=== PATIENT | female | born 1945 | race Caucasian/White ===

== ENCOUNTER 2016-09-13 16:08 | Emergency (ER) | payer OTHER, MEDICARE ==
[~2016-09-13] VITALS: Ht 157.5 cm; Wt 81.2 kg
[~2016-09-13 16:08] MED LIST: ALBUTEROL0.09 MG/A1 INH; AMOXIL500 MG PO; AUGMENTIN 875 M1 TAB PO; AZITHROMYCIN250 MG PO; BLM PO; CIPRO 500MG (E500 MG PO; COZAAR50 M1 PO; CYANOCOBAL1000 MCG/2 IM; DILTIAZEM60 MG PO; FENOFIBRIC ACID45 M1 PO; MEDROL DOSEPAK1 PAC PO; MEDROL4 M2 PO; PREDNISONE 20MG20 MG PO; PREDNISONE10 MG PO; ROBITUSSIN COU237 ML PO; TYLENOL XSTR500 MG PO; VITAMIN D250000 UNIT PO; ZITHROMAX250 M2 PO; ZOFRAN4 M2 PO
[2016-09-13 16:14] VITALS: BP 124/81
--- NOTE | 2016-09-13 17:16 | ED GI/GU/ABDOMINAL COMPLAINT ---
History of Present Illness General Chief Complaint: General Adult Stated Complaint: "TARRY DIARRHEA PAIN IN LEFT SIDE" Source: patient Exam Limitations: no limitations Vital Signs & Intake/Output Vital Signs & Intake/Output Vital Signs Date Time Temp Pulse Resp B/P Pulse O2 O2 Flow FiO2 Ox Delivery Rate 09/13 1614 97.2 91 20 124/81 95 Room Air Allergies Coded Allergies: celecoxib (From CELEBREX) (Intermediate, UPSET STOMACH 09/13/16) naproxen (Intermediate, UPSET STOMACH 09/13/16) aspirin (GI UPSET 09/13/16) Reconcile Medications Azithromycin (Zithromax) 250 MG TABLET 1 DP PO AD PNA 2 the first day followed by 1 for days 2-5 Cyanocobalamin (Vitamin B-12) (Cyanocobalamin Injection) 1,000 MCG/1 ML VIAL 1 ML IM Q30D SUPPLEMENT (Reported) Ergocalciferol (Vitamin D2) (Vitamin D2) 50,000 UNIT CAPSULE 1 CAP PO Q2W SUPPLEMENT (Reported) FENOFIBRIC ACID (CHOLINE) (Fenofibric Acid) 45 MG ECC 1 TAB PO DAILY CHOLESTEROL (Reported) Losartan Potassium 50 MG TAB 1 TAB PO DAILY HEART (Reported) Methylprednisolone. (Medrol) 4 MG TAB.DS.PK 1 DP PO AD neck pain 6 on day 1 then reduce by one tablet daily until gone Ondansetron HCl (Zofran) 4 MG TABLET 1 TAB PO Q6-8P PRN NAUSEA Triage Note: TRIAGE: PT TO ER C/C DIARRHEA X 1 MONTH INTERMITTENT AND PAIN TO L FLANK AREA X COUPLE HOURS. WAS GIVEN DICYCLOMINE HCL 10 MG BY PMD FOR DIARRHEA BUT IT'S NOT HELPING. WAS REFERRED TO DR HIGGINS BUT CAN'T GET AN APPOINTMENT UNTIL OCTOBER. Triage Nurses Notes Reviewed? yes ? N Is pt currently ? No Onset: Gradual Duration: constant Timing: recent history Severity Numbers: 4 Radiation: no radiation HPI: Patient is a 71-year-old female with a past medical history of chronic pain who has been prescribed narcotic medications in the past in which patient states that recently she has been noting constipation issues and due to the symptoms she began laxative medications approximate 1 month ago and has had persistent loose watery stool bowel production since however she states that she was evaluated by primary care doctor and was given Bentyl for her symptoms with no improvement however patient is still taking the laxative. Patient's had 4 bowel movements loose watery in nature and the last 24 hours however patient does state that bowel movements have been black tarry stools in nature. Patient did yesterday begin regimen of [id number] Pepto-Bismol. Patient is able tolerate by mouth no change in symptoms. Denies any nausea vomiting abdominal pain back pain fever chills vaginal bleeding vaginal discharge flank pain hematuria dysuria or change in frequency of urination. Patient does state that she has a follow-up appointment with GI Dr. HIGGINS however this is not till next month. Patient also discontinue the use of Pepto-Bismol today Patient also has discontinued the use of morphine for her pain (MARIELA RIVERS) Past History Travel History Traveled to [place] past 21 day No Medical History Any Pertinent Medical History? 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 No (MARIELA RIVERS) Review of Systems Review of Systems Constitutional: Reports: no symptoms. EENTM: Reports: no symptoms. Respiratory: Reports: no symptoms. Cardiovascular: Reports: no symptoms. GI: Reports: see HPI, changes in stool. Denies: abdominal pain. Genitourinary: Reports: no symptoms. Musculoskeletal: Reports: no symptoms. Skin: Reports: no symptoms. Neurological/Psychological: Reports: no symptoms. Hematologic/Endocrine: Reports: no symptoms. Immunologic/Allergic: Reports: no symptoms. All Other Systems: Reviewed and Negative (MARIELA RIVERS) Physical Exam Physical Exam General Appearance: well developed/nourished, no apparent distress, alert Gastrointestinal: normal bowel sounds, soft, non-tender Rectal: RECTAL TONE INTACT nORMALINSPECTION bROWN STOOL NOTED fECAL OCCULT NEGATIVE Comments: Well-developed well-nourished person in no acute distress HEENT: Normal EENT exam, extraocular motion intact, no nystagmus. Pupils equally round and reactive to light and accommodation. Nose is atraumatic. External auditory canal and Tympanic membranes clear. Pharynx normal. No swelling or edema. Neck: Supple, no lymphadenopathy, normal range of motion without pain or tenderness Back: Nontender, no CVA tenderness. Cardiovascular: Regular rate and rhythms no murmurs rubs or gallops, normal JVP Respiratory: Chest nontender. No respiratory distress.breath sounds clear to auscultation bilaterally Abdomen: Soft, nontender nondistended, no appreciable organomegaly. Normal bowel sounds. No ascites Extremity: No edema, no calf tenderness to palpation, normal and equal pulses. Neuro: Alert oriented x3, motor sensory normal, Skin: No appreciable rash on exposed skin, skin is warm and dry. Psych: Mood and affect is normal, memory and judgment is normal. Core Measures ACS in differential dx? No Severe Sepsis Present: No Septic Shock Present: No (MARIELA RIVERS) Progress Differential Diagnosis: AAA, AMI, appendicitis, biliary colic, bowel obstruction , colon cancer, cholecystitis, diverticulitis, ectopic , endometritis, esophageal varices, gastritis, hepatitis, hernia, hemorrhoids, ischemic bowel, inflamm bowel dis, intrauterine , kidney stone, Kisha-Perfecto tear, ovarian cyst, ovarian torsion, pancreatitis, PID/cervicitis, peptic ulcer, PUD/ GERD, perforated viscous, SBO, threatened AB, UTI/pyelo Plan of Care: Patient currently has no complaints of abdominal pain and has nontender abdomen on exam. Patient had brown stool noted and fecal occult negative. Most likely patient's signs of black tarry stool were from Pepto-Bismol which has resolved. I also advised patient to discontinue the use of laxatives which is causing patient had significant bowel loose watery stool production. Patient on discharge was in no apparent distress and was strongly advised to follow-up with gastric urologist and she will comply. Discussed disposition and plan with Dr. Ocampo who agrees Initial ED EKG: none (MARIELA RIVERS) Departure Departure Disposition: HOME OR SELF CARE Condition: Stable Clinical Impression Primary Impression: Diarrhea Referrals: BLAKE SCHMITZ,FERNANDO Hernandez (PCP/Family) Additional Instructions: As discussed please discontinue the use of your laxative and only use THIS medication if you do not have a bowel movement in about 3-4 days Begin DRINKING PLENTY OF water FOR HYDRATION and fiber to improve your symptoms. If symptoms worsen or if you develop a new concerning symptom return to emergency room. Tomorrow please follow-up with your established quencher operator Dr. HIGGINS. Departure Forms: Customer Survey General Discharge Information (JUJU ROSENBERG,MARIELA) PA/[employer] Co-Sign Statement Statement: ED Attending supervision documentation- [X] I saw and evaluated the patient. I have also reviewed all the pertinent lab results and diagnostic results. I agree with the findings and the plan of care as documented in the PA's/[employer]'s documentation. [] I have reviewed the ED Record and agree with the PA's/[employer]'s documentation. [] Additions or exceptions (if any) to the PAs/[employer]'s note and plan are summarized below: [] (KRISTIE SCHMITZ,DEIDRE Barnes)
== END 2016-09-13 18:19 ==
LOC: ERH 16:08
DX: R19.7 Diarrhea, unspecified (principal)

== ENCOUNTER 2016-10-23 07:40 | Emergency (ER) | payer OTHER, MEDICARE ==
[~2016-10-23] VITALS: Ht 157.5 cm; Wt 81.6 kg
[2016-10-23] MEDS ORDERED: PREDNISONE10 M2 PO (08:46)
[2016-10-23] MEDS ORDERED: PANTOPRAZOLE SO40 M1 PO (08:47)
--- NOTE | 2016-10-23 08:51 | ED GENERAL ADULT ---
History of Present Illness General Chief Complaint: General Adult Stated Complaint: LAZO/LEFT SIDE NECK PAIN TRAVELS TO LEFT ARM Source: patient Exam Limitations: no limitations Allergies Coded Allergies: celecoxib (From CELEBREX) (Intermediate, UPSET STOMACH 09/13/16) naproxen (Intermediate, UPSET STOMACH 09/13/16) aspirin (GI UPSET 09/13/16) Triage Note: PT TO ED WITH C/O HEADACHE PAIN, THEN LIPS NUMB, THEN HANDS NUMB, HX MIGRAINE, AND C-SPINE PROBLEMS "PINCHED NERVE IN MY NECK", PT HAS NEUROLOGIST DR JI IN [place], HAS APPT WITH DR NOBLE FOR "SHOT IN MY LEGS". Triage Nurses Notes Reviewed? yes HPI: 71 year old woman with an extensive medical history significant for multiple pain complaints, degenerative disk disease, cervical radiculopathy, herniated disc and arthritis seen for evaluation of acute onset left-sided 10/10 neck pain with radiation above her eye. Around 2 AM she was awoken with this acute onset pain, which has happened in the past, for which she went downstairs and applied an ice pack to the area which offered her relief. She describes the pain has a "charley horse" associated lip and bilateral hand numbness. She has undergone extensive medical evaluation by multiple different specialties including orthopedics, pain management, rheumatology with an upcoming appointment with neurology for these complaints in the past. Additional comments on associated chest discomfort that she attributes to her herniated disc. Otherwise she denies any blurred/double vision, lightheadedness/dizziness, fever , chills, palpitations, shortness of breath, nausea, vomiting, diarrhea. (MILENA SCHMITZ,KIMMIE) Vital Signs & Intake/Output Vital Signs & Intake/Output Vital Signs Date Time Temp Pulse Resp B/P Pulse O2 O2 Flow FiO2 Ox Delivery Rate 10/23 0903 98.0 70 20 140/80 98 Room Air 10/23 0748 97.8 71 20 146/86 98 Room Air Room Air Reconcile Medications Cyanocobalamin (Vitamin B-12) (Cyanocobalamin Injection) 1,000 MCG/1 ML VIAL 1 ML IM Q30D SUPPLEMENT (Reported) Ergocalciferol (Vitamin D2) (Vitamin D2) 50,000 UNIT CAPSULE 1 CAP PO Q2W SUPPLEMENT (Reported) Fenofibric Acid (Choline) (Fenofibric Acid) 45 MG CAPSULE.DR 1 TAB PO DAILY CHOLESTEROL (Reported) Losartan Potassium (Cozaar) 50 MG TABLET 1 TAB PO DAILY HEART (Reported) Pantoprazole Sodium 40 MG TABLET. 1 TAB PO DAILY GI (Reported) Prednisone 10 MG TABLET 1 TAB PO DAILY STEROID (Reported) (ANA SCHMITZ,GOLD Hanks) Past History Travel History Traveled to [place] past 21 day No Medical History Any Pertinent Medical History? 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 No (KIMMIE ABBOTT MD) Review of Systems Review of Systems Constitutional: Reports: see HPI. (KIMMIE ABBOTT MD) Physical Exam Physical Exam General Appearance: well developed/nourished, no apparent distress, alert, awake Comments: General - well developed, well nourished obese woman in no acute distress HEENT - NCAT, PERRLA, EOMI, anicteric sclera Neck - Supple, mild tenderness to palpation, no JVD CVS - S1, S2 w/o m/g/r Resp - CTA bilaterally GI - Soft, nontender, nondistended, bowel sounds intact Neuro - Awake and Alert, CN II - XII intact, no slurred speech, no gait disturbance, Strength 5/5 x4, sensation intact Ext - normal pulses, no cyanosis/clubbing/edema Core Measures ACS in differential dx? No CVA/TIA Diagnosis: No Severe Sepsis Present: No Septic Shock Present: No (KIMMIE ABBOTT MD) Progress Differential Diagnoses I considered the following diagnoses in my evaluation of the patient: cervical radiculopathy, musculoskeletal strain, TIA, CVA Plan of Care: Current Medications Sig/Sami Start time Last Medication Dose Stop Time Status Admin Ketorolac 30 MG ONCE ONE 10/23 0845 UNVr Tromethamine 10/23 0846 (Toradol) Initial ED EKG: none Comments: Given patients extensive medical history of musculoskeletal pain, degenerative disc disease, and cervical radiculopathy which has been extensively evaluated by multiple specialists it is likely that patients pain complaints are an exacerbation of her underlying disease. She has a benign physical examination including a normal neurologic evaluation. She was given an intramuscular injection of Toradol and instructed to follow up with her various specialists after discharge. (KIMMIE ABBOTT MD) Departure Departure Disposition: HOME OR SELF CARE Condition: Stable Clinical Impression Primary Impression: Cervical radicular pain Secondary Impressions: Musculoskeletal strain Referrals: BLAKE SCHMITZ,FERNANDO Hernandez (PCP/Family) Additional Instructions: Follow up with your various specialists for further evaluation of your neck pain. Call 911 or return to the ED should your symptoms worsen, or if you developed signs of slurred speech, weakness, or worsening neurologic deficits. Departure Forms: Customer Survey General Discharge Information (KIMMIE ABBOTT MD) Resident Co-Sign Statement Statement: ED Attending supervision documentation- [X] I saw and evaluated the patient. I have also reviewed all the pertinent lab results and diagnostic results. I agree with the findings and the plan of care as documented in the Resident's documentation. [X] I have reviewed the ED Record and agree with the Resident's documentation. [] Additions or exceptions (if any) to the Resident's note and plan are summarized below: [Percent seen and examined this patient. I read the above-noted review with what has been written. Patient has a known history of cervical radiculopathy. She has seen orthopedics and has appointment with a neurologist. Patient states that she feels that she has perioral numbness as well as numbness in both hands. Patient denies any weakness. On exam she has subjective sensory loss but normal motor function and normal tone. There is sharp and dull discrimination to both hands as well as periorarly. Patient is stable for discharge with follow-up.] (ANA SCHMITZ,GOLD Hanks) Critical Care Note Critical Care Note Critical Care Time: non-applicable (KIMMIE ABBOTT MD)
[2016-10-23 09:03] VITALS: BP 140/80
== END 2016-10-23 09:03 ==
LOC: ERH 07:40
DX: S16.1XXA Strain of muscle, fascia and tendon at neck level, initial encounter (principal); M54.12 Radiculopathy, cervical region
CPT/HCPCS: 96372; J1885

== ENCOUNTER 2017-02-08 00:25 | Inpatient (IN) | payer OTHER, MEDICARE ==
[~2017-02-08] VITALS: Ht 157.5 cm; Wt 83.0 kg
[~2017-02-08 00:25] MED LIST changes: +PANTOPRAZOLE SO40 M1 PO; +PREDNISONE10 M2 PO
--- NOTE | 2017-02-08 00:28 | ED CARDIAC/CP/PALPITATIONS ---
History of Present Illness General Chief Complaint: Chest Pain Stated Complaint: PER PT CP, VOMITING" Source: patient Exam Limitations: no limitations Vital Signs & Intake/Output Vital Signs & Intake/Output Vital Signs Date Time Temp Pulse Resp B/P B/P Pulse O2 O2 Flow FiO2 Mean Ox Delivery Rate 02/08 0133 97.0 126 18 153/89 95 Nasal 2.0L Cannula 02/08 0034 95.2 130 18 148/66 95 Room Air Allergies Coded Allergies: celecoxib (From CELEBREX) (Intermediate, UPSET STOMACH 02/08/17) naproxen (Intermediate, UPSET STOMACH 02/08/17) aspirin (GI UPSET 02/08/17) Reconcile Medications Cyanocobalamin (Vitamin B-12) (Cyanocobalamin Injection) 1,000 MCG/1 ML VIAL 1 ML IM Q30D SUPPLEMENT (Reported) Ergocalciferol (Vitamin D2) (Vitamin D2) 50,000 UNIT CAPSULE 1 CAP PO Q2W SUPPLEMENT (Reported) Fenofibric Acid (Choline) (Fenofibric Acid) 45 MG CAPSULE.DR 1 TAB PO DAILY CHOLESTEROL (Reported) Losartan Potassium (Cozaar) 50 MG TABLET 1 TAB PO DAILY HEART (Reported) Pantoprazole Sodium 40 MG TABLET.DR 1 TAB PO DAILY GI (Reported) Prednisone 10 MG TABLET 1 TAB PO DAILY STEROID (Reported) Triage Nurses Notes Reviewed? yes Onset: Gradual Duration: hour(s): Timing: recent history Quality/Severity: moderate Location: central Radiation: no radiation Activities at Onset: none Prior Chest Pain/Card Workup: prior eval reportedly negative more than 2 years ago. Nitro Today/Relief: 0.4 mg x 1, provided by ED, mild relief Aspirin Today: 325 mg x 1, provided by ED Associated Symptoms: back pain. HPI: 71 yo woman h/o fatty liver presents with chest pain that began at 11pm. At home, pain was 9/10, in ED, presently 7/10. She notes, "I also have had back pain for many months... I had disc problems." She notes no shortness of breath, dyspnea, radiation, sycnopal type symptoms. Past History Travel History Traveled to [place] past 21 day No Medical History Any Pertinent Medical History? 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 No Review of Systems Review of Systems Constitutional: Reports: no symptoms. EENTM: Reports: no symptoms. Respiratory: Reports: no symptoms. Cardiovascular: Reports: no symptoms. GI: Reports: no symptoms. Genitourinary: Reports: no symptoms. Musculoskeletal: Reports: no symptoms. Skin: Reports: no symptoms. Neurological/Psychological: Reports: no symptoms. Hematologic/Endocrine: Reports: no symptoms. Immunologic/Allergic: Reports: no symptoms. All Other Systems: Reviewed and Negative Physical Exam Physical Exam General Appearance: well developed/nourished, mild distress Head: atraumatic, normal appearance Eyes: Bilateral: normal appearance. Ears, Nose, Throat: normal pharynx, normal ENT inspection Neck: normal inspection, supple, full range of motion Respiratory: normal breath sounds, chest non-tender, no respiratory distress, quiet respiration, lungs clear Cardiovascular: regular rate/rhythm Gastrointestinal: normal bowel sounds, soft, non-tender, no organomegaly Back: normal inspection, normal range of motion Extremities: normal inspection, normal capillary refill, normal range of motion, no edema Neurologic/Psych: no motor/sensory deficits, awake, alert, oriented x 3 Skin: intact, normal color, warm/dry Core Measures ACS in differential dx? Yes ASA ordered for poss ACS? Yes-ordered Severe Sepsis Present: No Septic Shock Present: No Progress Differential Diagnosis: AMI, CHF/pulm edema, costochondritis, unstable angina Plan of Care: Orders Procedure Date/time Status Nothing by Mouth 02/08 B Active Saline Lock 02/[address] in observation 02/08 227 Active Misc Message 02/08 227 Active ED Holding Orders 02/08 227 Active Vital Signs 02/08 227 Active Code Status 02/08 227 Active TROPONIN LEVEL 02/09 28 Complete PARTIAL THROMBOPLASTIN TIME 02/08 0028 Complete PROTHROMBIN TIME 02/08 0028 Complete LIPASE 02/08 0028 Complete HEPATIC FUNCTION PANEL 02/08 0028 Complete D-DIMER 02/08 0028 Complete CBC WITHOUT DIFFERENTIAL 02/088 Complete BASIC METABOLIC PANEL 02/09 28 Complete AMYLASE 02/09 28 Complete EKG 02/08 27 Active Current Medications Sig/Sami Start time Last Medication Dose Stop Time Status Admin Heparin Sodium 4,000 UNIT ONCE ONE 02/08 230 UNVr (Porcine) 02/08 231 (Heparin Bolus) Heparin Sodium 25,000 UNIT Q24H 02/08 230 UNVr (Porcine) (Heparin) Sodium Chloride 500 ML Laboratory Tests 02/08/17 0040: Anion Gap 11, Estimated GFR > 60, BUN/Creatinine Ratio 21.3, Glucose 95, Calcium 10.2, Total Bilirubin 0.6, Direct Bilirubin 0.1, AST 21, ALT 38, Alkaline Phosphatase 81, Troponin I < 0.01, Total Protein 6.8, Albumin 4.1, Amylase 41, Lipase 59, PT 10.4, INR 0.99, APTT 30, D-Dimer High Sensitivty < 200, CBC w Diff NO MAN DIFF REQ, RBC 4.58, MCV 91.5, MCH 30.5, RDW 13.6, MPV 9.5, Gran % 49.1, Lymphocytes % 33.2, Monocytes % 11.5 H, Eosinophils % 5.9 H, Basophils % 0.3, Absolute Granulocytes 5.0, Absolute Lymphocytes 3.3, Absolute Monocytes 1.2 H, Absolute Eosinophils 0.6, Absolute Basophils 0, PUBS MCHC 33.3 Diagnostic Imaging: Viewed by Me: Radiology Read. Discussed w/RAD: Radiology Read. CXR Impression: no acute abnormality, no infiltrates, normal size heart, normal mediastinum Initial ED EKG: sinus tach Departure Departure Disposition: STILL A PATIENT Condition: Stable Clinical Impression Primary Impression: Chest pain Referrals: BLAKE SCHMITZ,FERNANDO Hernandez (PCP/Family) Departure Forms: Customer Survey General Discharge Information Comments 02/08/17, 1:56AM... discussed with dr. baum who concurs with plan to bring patient with for obs. He suggests heparin gtt for unstable angina. Observation Note Spoke With: JULIET SCHMITZ,LEE ANN Physician Advisor Notified: DEIDRE LADD DO Place Patient In: Non-ED OBS Care Area Rationale for Observation: My rational for observation is as follows . pt with multiple risk factors (age, lipids, htn), with uncertain etiology of her chest pain.... merits rule out, monitoring for dysrhythmia, cards eval in am... discussed with dr. baum. Critical Care Note Critical Care Note Critical Care Time: 30-74 min Comments: nitro given ... possible partial response. pt also with reproducible component of chest pain and back pain. dimer, trop negative.
--- NOTE | 2017-02-08 00:39 | NUR ---
O2:95%RA, PLACED ON 2LNC ON ARRIVAL. IV EST #20 RIGHT HAND BY KAREEM Izquierdo RN.
--- NOTE | 2017-02-08 00:39 | NUR ---
TRIAGE: PATIENT TO ER FROM HOME REPORTING SUDDEN ONSET CP X 30 MINUTES, "TOOK HR AND IT WAS 135 AT HOME." HR 130 ON MONITOR, PATIENT REPORTS "MAYBE HAD RI IN PAST." HX HTN AND HIGH CHOLESTEROL. PATIENT VOMITTING ON ARRIVAL TO ER, REPORTING +NAUSEA, HEADACVHE, LIGHTHEADEDNESS W/ INTERMITTENT SOB.
--- NOTE | 2017-02-08 00:48 | NUR ---
PT REPORTS DROVE ON A LONG TRIP LAST WEEKEND AND HAS HAD ACHES AND PAIN TO BACK AND RT SHOULDER SINCE THEN, IV ESTABLISHED. LABS DRAWN SEPARATELY. AT BEDSIDE.
[2017-02-08 00:58] LABS: ABSOLUTE BASOPHIL COUNT 0 /CUMM (0.0-0.2); ABSOLUTE EOSINOPHIL COUNT 0.6 /CUMM (0.0-0.7); ABSOLUTE LYMPH COUNT 3.3 /CUMM (1.2-3.4); ABSOLUTE MONOCYTE COUNT 1.2 /CUMM (0.10-0.60); BASOPHIL % 0.3 % (0.0-2.0); EOSINOPHIL % 5.9 % (0-5); GRANULOCYTE % 49.1 % (42.2-75.2); HEMATOCRIT 41.9 % (37-47); MEAN CORPUSCULAR HGB 30.5 PG (27.0-31.0); MEAN CORPUSCULAR HGB CONC 33.3 G/DL (33.0-37.0); MEAN CORPUSCULAR VOLUME 91.5 FL (81.0-99.0); MEAN PLATELET VOLUME 9.5 FL (7.4-10.4); PLATELET COUNT 227 /CUMM (130-400); RBC DISTRIBUTION WIDTH 13.6 % (11.5-14.5); RED BLOOD CELL CT 4.58 /CUMM (4.20-5.40); WHITE BLOOD CELL COUNT 10.1 /CUMM (4.8-10.8)
[2017-02-08 01:04] LABS: PT 10.4 SEC (9.4-12.5); PTT 30 SEC (25-37)
--- NOTE | 2017-02-08 01:09 | NUR ---
REPORTS PAIN 7/10 BEFORE NITRO, UPON ARRIVAL TO ROOM PLACED ON O2 FOR COMFORT.
--- NOTE | 2017-02-08 01:28 | RADIOLOGY REPORT ---
EXAMINATION: XR PORTABLE CHEST CLINICAL INFORMATION: Chest pain COMPARISON: 06/25/2016 TECHNIQUE: Portable frontal view of the chest was obtained. FINDINGS: The lungs are clear with no focal consolidation. No evidence of pneumothorax, pulmonary edema, or pleural effusions. The cardiomediastinal silhouette is unremarkable. No acute osseous findings. IMPRESSION: No acute cardiopulmonary findings.
--- NOTE | 2017-02-08 01:46 | NUR ---
NO RELIEF FROM NTG PT REPORTS ONLY ICE PACKS USUALLY HELP. AMBULATORY TO BR GAIT STEADY NO WORSENING PAIN.
--- NOTE | 2017-02-08 02:00 | NUR ---
RECTAL HEME NEG
--- NOTE | 2017-02-08 02:15 | NUR ---
AWAITING HEPARIN ORDER FROM .
--- NOTE | 2017-02-08 02:25 | NUR ---
HR DOWN TO 110-115.
--- NOTE | 2017-02-08 02:42 | History & Physical ---
KATYA ENGLE 02/08/17 0242: General Information and HPI MD Statement: I have seen and personally examined REJI ALEJANDROKATY and documented this H&P. The patient is a 71 year old F who presented with a patient stated chief complaint of chest pain Source of Information: patient Exam Limitations: no limitations History of Present Illness: 71 year old woman with pmh significant for HTN, HLD, GERD, history of tachycardia came to ED for evaluation of Chest pain. Around 11pm yesterday evening she was woken up from sleep by a sharp substernal non radiating chest pain with a severity of 10/10 and was associated with palpitations and shortness of breath. She went downstairs and checked her BP and HR and found it to be respectively 175/108 and 138. When she came to the ED she experienced some nausea and vomitting. Her Pain had also reduced to 7/10. She was give nitro in the ED however did not feel any improvement afterwards. On interview she was pain free. She drove about 10 hours last weekend. Last cardiac workup was two years ago which was normal. Allergies/Medications Allergies: Coded Allergies: celecoxib (From CELEBREX) (Intermediate, UPSET STOMACH 02/08/17) naproxen (Intermediate, UPSET STOMACH 02/08/17) aspirin (GI UPSET 02/08/17) Compliance With Home Meds: GOOD Past History Travel History Traveled to [place] past 21 day No Medical History Neurological: NONE EENT: NONE Cardiovascular: hypertension, hyperlipidemia, "MAYBE [place]" Respiratory: NONE Gastrointestinal: NONE Hepatic: NONE Renal: NONE Musculoskeletal: sciatica, SPINAL FLUID/ PAIN HERNIATED DISC NECK PINCHED NERVES IN NECK RUPTERED DISK Psychiatric: NONE Endocrine: vitamin D deficiency, VITAMIN B 12 DEFICIENCY Blood Disorders: NONE Cancer(s): NONE SERVICE GIRL/Reproductive: NONE Surgical History Surgical History: NECK SURG "CODED JUST AFTER SURG" Past Family/Social History Family History Relations & Conditions if any MOTHER FH: COPD (chronic obstructive pulmonary disease) FH: myocardial infarction Psychosocial History Where do you live? Home Who Do You Live With? spouse Smoking Status: Never Smoked ETOH Use: denies use Functional Ability ADLs Independent: dressing, eating, toileting, bathing. Ambulation: independent IADLs Independent: shopping, housework, finances, food prep, telephone, transportation , medication admin. Review of Systems Review of Systems Constitutional: Denies: chills, diaphoresis, fever, malaise, weakness, unexplained weight loss. Cardiovascular: Reports: chest pain, palpitations. Denies: edema, orthopena, peripheral edema, syncope. Respiratory: Reports: short of breath. Denies: cough, hemoptysis, orthopnea, sputum production, stridor, wheezing. GI: Denies: abdominal pain, bloating, constipation, diarrhea, distention, bowel incontinence, melena, nausea, bloody stool, changes in stool, vomiting, steatorrhea. Genitourinary: Denies: discharge, dysuria, frequency, hematuria, hesitation, nocturia, pain, urgency. Exam & Diagnostic Data Last 24 Hrs of Vital Signs/I&O Vital Signs Date Time Temp Pulse Resp B/P B/P Pulse O2 O2 Flow FiO2 Mean Ox Delivery Rate 02/08 0559 97.1 73 119/93 02/08 0350 97.4 88 18 130/56 02/08 0350 97.4 88 18 130/56 96 Nasal 2.0L Cannula 02/08 0133 97.0 126 18 153/89 95 Nasal 2.0L Cannula 02/08 0034 95.2 130 18 148/66 95 Room Air Intake & Output 02/08 0800 02/08 0000 02/07 1600 Intake Total Output Total Balance Patient 183 lb Weight Weight Reported by Patient Measurement Method Physical Exam General Appearance Alert, Oriented X3, Cooperative, No Acute Distress Skin No Significant Lesion HEENT Atraumatic, PERRLA, EOMI, Mucous Membr. moist/pink Neck Supple Lymphatic Cervical nl Cardiovascular Regular Rate, Normal S1, Normal S2 Lungs Clear to Auscultation, Normal Air Movement Abdomen Normal Bowel Sounds, Soft, No Tenderness Neurological Normal Speech, Strength at 5/5 X4 Ext, Normal Tone, Cranial Nerves 3-12 NL Extremities No Edema, Normal Pulses Diagnostic Data EKG Results sinus tachy, [address] wave depression in leads v2v3, Qwaves in 2/3 CXR Results IMPRESSION: No acute cardiopulmonary findings. Assessment/Plan Assessment: 71 year old woman with pmh significant for HTN, HLD, GERD, history of tachycardia came to ED for evaluation of Chest pain. As Ranked By This Provider Problem List: 1. Atypical chest pain Assessment/Plan admit to tele trend trop and EKG IV heparin started in ED f/up lipid panel, TSH/t2 f/up echo cardiology aware DVT doppler to r/o dvt ( long distance drive, however Low risk per Well's score 2. DVT prophylaxis Assessment/Plan IV heparin 3. Full code status Core Measures/Miscellaneous Sepsis (View Protocol) Severe Sepsis Present: No Septic Shock Septic Shock Present: No SANDY OVERTON 02/08/17 0532: General Information and HPI Allergies/Medications Home Med list Aspirin (Aspirin*) 81 MG TAB.CHEW 1 TAB PO DAILY HEART HEALTH Atorvastatin Calcium 40 MG TABLET 1 TAB PO 1700 HYPERLIPIDEMIA Cyanocobalamin (Vitamin B-12) (Cyanocobalamin Injection) 1,000 MCG/1 ML VIAL 1 ML IM Q30D SUPPLEMENT (Reported) Ergocalciferol (Vitamin D2) (Vitamin D2) 50,000 UNIT CAPSULE 1 CAP PO Q2W SUPPLEMENT (Reported) Fenofibric Acid (Choline) (Fenofibric Acid) 45 MG CAPSULE.DR 1 TAB PO DAILY CHOLESTEROL (Reported) Losartan Potassium (Cozaar) 50 MG TABLET 1 TAB PO DAILY HEART (Reported) Metoprolol Tartrate 25 MG TABLET 1 TAB PO BID HEART DISEASE Pantoprazole Sodium 40 MG TABLET.DR 1 TAB PO DAILY GI (Reported) Prednisone 10 MG TABLET 1 TAB PO DAILY PRN ARTHRITIS (Reported) Core Measures/Miscellaneous Acute Coronary Syndrome ACS Diagnosis: No Cerebrovascular Accident CVA/TIA Diagnosis: No Congestive Heart Failure CHF Diagnosis: No VTE (View Protocol) VTE Risk Factors: Acute medical illness, Age > 40, Immobility, paresis [facility] prophylaxis d/t: No contraindications No VTE Pharm Prophylaxis d/t: No contraindications VTE Diagnosis: No VTE Type: NONE VTE Confirmed by (Test): NONE Miscellaneous Documentation Attending Case Discussed With: LEE ANN CHUNG MD Primary Care Physician: FERNANDO LOZANO MD Patient sees these Specialists Dr. Fernandez Level of Patient Care: Telemetry Resident Review Statement Resident Statement: examined this patient, discussed with human resources intern, amended to note Other Findings: 71 year old woman with HTN, long standing history of palpitations, seen in the ED for an episode of non exertional chest pain that started 11 pm after the patient had salad with vinegar for her meal, lasting for more than an hour, not improved with nitro use, currently chest pain free, deemed unstable angina in the ED and now on IV Heparin. Troponin : <0.01 D-dimer : <200, Well's :Intermedite risk HERMINIO score : 1. EKG: High suspicion for atrial tachycardia. Previously present RSR' variant on EKG now not present. Old inferior infarct. Plan: 1. ACS: Rule out with serial troponins and EKG. IV Heparin per Cardio. ASA, B- deisy, statin, nitroglycerin, morphine and oxygen. Echo. Continue PPI for acid suppression. 2. Atrial tachycardia verus inappropriate sinus tachycardia: Denies increased caffeine intake, no cocaine use. Check TSH/T4. Normal potassium noted, check magnesium, replete as necessary Mg > 2. Fluid hydration. Low likelihood for DVT, but recent long drive to [place], rule out DVT with doppler. Of note, first time alcohol use this evening. Non-smoker. Improved HR after one dose of B-deisy, well tolerated. 3. Hypertension: Continue home dose of Losartan. Full code IV heparin - DVT prophylaxis. NPO until cardio evaluation in the event of any intervention, pending results of EKGs and cardiac markers. LEE ANN CHUNG 02/08/17 0619: Attending MD Review Statement Attending Statement Attending MD Statement: examined this patient, discuss w/resident/PA/LEAD GAME DESIGNER, agreed w/resident/PA/LEAD GAME DESIGNER, reviewed EMR data (avail), reviewed images, amended to note Attending Assessment/Plan: CC: Chest pain PMH: HTN, HLD, OA, chronic back pain Patient came to ER with sudden onset sharp chest pain all over her chest 10/10 in intensity, nonradiating, non-shifting, started at 11 PM. Associated with some palpitations and mild difficulty in breathing. Patient has occasional dry cough, mild nausea vomiting and dizziness. When the symptoms started at home she checked her pulse and blood pressure at home which were elevated, when the chest pain was persistent she came to ER. Patient had 3 similar episodes in the past last summer, was evaluated by coding and reimbursement specialist outpatient. Patient has limited physical activity secondary to chronic back pain and history of angina or heart failure cannot be elicited. Patient also traveled [address] recently without taking a break. She had mild lower extremity swelling bilaterally last week but currently resolved. Denies fever or chills syncope or presyncopal episodes Vitals: Afebrile, pulse and 138 and regular, RR 18, blood pressure 148/66, saturating well on 2 L nasal cannula. On exam: A O 3, cooperative, no acute distress, neck supple, JVD normal, no lymphadenopathy, mucosa moist, no focal neurological deficit, no dependent edema , no obvious skin rashes or inflammation CVS: S1-S2, RRR. RS: Clear to auscultate bilaterally. Abdomen: Soft, NT, ND, bowel sounds present. Labs: CBC, BMP, LFT, troponin, d-dimer unremarkable chest x-ray: No acute cardiopulmonary process A and P 71-year-old female with a past medical history significant for hypertension and dyslipidemia presented with acute onset diffuse chest pain 10/10 intensity associated with palpitations. Symptomatically much better after coming to ER and with multiple treatments. Similar episodes in the past but does not specify whether exertional or nonexertional. Because of limited physical activity with chronic back pain exertional dyspnea or angina cannot be evaluated. Follows up with outpatient cardiology. She did not tolerate beta deisy in the past. Acute coronary syndrome should be ruled out, at the same time given her long travel, recent leg swelling and tachycardia DVT/ VTE should be ruled out. Her d-dimer is negative, bilateral lower extremity Dopplers will be next best choice. + Chest pain : ? Unstable angina + Rule out pulmonary embolism + History of hypertension, dyslipidemia + History of back pain with lumbar and cervical radiculopathy - Placed in observation on telemetry - Continuous telemetry monitoring - Trend troponin and EKG - Continue heparin drip - Continue aspirin, atorvastatin - Check lipid profile - Consult cardiology - 2-D echo in a.m., DVT Doppler bilateral lower extremity - According to patient, she tried beta blockers 2 times in the past and cannot tolerate it - Adequate pain control - DVT prophylaxis with Lovenox
--- NOTE | 2017-02-08 02:58 | NUR ---
HOUSESTAFF REVIEWING CHART.
--- NOTE | 2017-02-08 04:13 | NUR ---
AWAITS BED ASSIGNMENT.
--- NOTE | 2017-02-08 04:20 | NUR ---
PER SUPER HAVE TO MOVE BEDS TO MAKE ROOM FOR PT.
[2017-02-08 05:58] LABS: ABSOLUTE BASOPHIL COUNT 0.1 /CUMM (0.0-0.2); ABSOLUTE EOSINOPHIL COUNT 0.6 /CUMM (0.0-0.7); ABSOLUTE GRANULOCYTE CT 4.7 /CUMM (1.4-6.5); ABSOLUTE LYMPH COUNT 2.8 /CUMM (1.2-3.4); ABSOLUTE MONOCYTE COUNT 0.8 /CUMM (0.10-0.60); BASOPHIL % 0.6 % (0.0-2.0); EOSINOPHIL % 6.2 % (0-5); MEAN CORPUSCULAR HGB 30.6 PG (27.0-31.0); MEAN CORPUSCULAR HGB CONC 33.2 G/DL (33.0-37.0); MEAN CORPUSCULAR VOLUME 92.1 FL (81.0-99.0); MEAN PLATELET VOLUME 10.1 FL (7.4-10.4); PLATELET COUNT 199 /CUMM (130-400); RBC DISTRIBUTION WIDTH 13.3 % (11.5-14.5); RED BLOOD CELL CT 4.23 /CUMM (4.20-5.40); WHITE BLOOD CELL COUNT 8.9 /CUMM (4.8-10.8)
--- NOTE | 2017-02-08 05:58 | NUR ---
REPEAT EKG, LABS DRAWN AND SENT ASLEEP DENIES PAIN CONT TO AWAIT BED.
--- NOTE | 2017-02-08 07:32 | NUR ---
ASSUMED CARE OF PT AT THIS TIME WHO WAS SLEEPING ON THIS RN ENTRANCE TO ROOM WAKES EASY TO VOICE AND OFFERS NO COMPLAINTS. DENIES PAIN. STATES SHE IS COMFORTABLE. NORMAL SINUS ON MONITOR, RATE 70'S. MED WITH PRILOSEC PER OCT.
[2017-02-08 09:22] LABS: PTT 71 SEC (25-37)
--- NOTE | 2017-02-08 09:36 | NUR ---
TAKEN TO US
--- NOTE | 2017-02-08 09:51 | NUR ---
PTT RESULTED AT 71. PER PROTOCOL, NO CHANGE TO DRIP. NEXT PTT TO BE CHECKED IN 12 HOURS (2045, 845 PM).
--- NOTE | 2017-02-08 10:19 | ULTRASOUND REPORT ---
EXAMINATION: US DUPLEX LOWER EXTREMITY VEINS, BILATERAL CLINICAL INFORMATION: Clinical concern regarding deep venous thrombosis. Bilateral lower extremity swelling after long drive. COMPARISON: Report of a right lower extremity duplex 06/05/15 TECHNIQUE: Real-time grayscale compression evaluation of the deep venous system. The compression exam is supplemented by color mapping and spectral analysis. Calf augmentation was used. Bilateral lower extremities FINDINGS: The deep venous system was visualized and compressible. The Doppler exam is normal. IMPRESSION: No deep venous thrombosis demonstrated.
--- NOTE | 2017-02-08 10:52 | NUR ---
MEDICATED WITH 1000 MEDS - ASA LISTED ALLERGY, PT STATES SHE TAKES IT AT HOME OCCASIONALLY AND SOMETIMES GETS LEG CRAMPS. WOULD LIKE TO TAKE IT TODAY IN ED, MEDICATED WITH SAME. REMAINS NORMAL SINUS ON MONITOR, RATE 70'S DENIES PAIN. OFFERS NO COMPLAINTS.
--- NOTE | 2017-02-08 11:15 | NUR ---
REPORT GIVEN TO UCRTIS PEDRO
--- NOTE | 2017-02-08 11:54 | NUR ---
12P TROP DRAWN AND SENT TO LAB
--- NOTE | 2017-02-08 11:55 | NUR ---
12P EKG DONE AND PLACED IN CHART; #[phone] PAGED
--- NOTE | 2017-02-08 12:01 | NUR ---
REPORT RECEIVED ON PT AND RN CARE ASSUMED PT DENIES CHEST PAIN OR SOB. HEPARIN DRIP INFUSING UNREMARKABLY. ALL V.S.S.
--- NOTE | 2017-02-08 14:05 | NUR ---
CLINICAL STATUS UNCHANGED. ALL V.S.S. PT DENIES CHEST PAIN OR SOB. HEPARIN DRIP INFUSING UNREMARKABLY
--- NOTE | 2017-02-08 16:12 | NUR ---
CLINICAL STATUS UNCHANGED. NO C/O CP OR SOB HEPARIN DRIP INFUSING UNREMARKABLY
--- NOTE | 2017-02-08 16:43 | PN- Att Addend ---
Attending Addendum Attending Brief Note Patient seen and examined. Resting comfortably and not in any acute distress. She denies any further chest pain since presentation. Denies shortness of breath or cough. Denies palpitation. She does complain of back pain but states that this is chronic. She reports relief with the use of Aleve at home. She has had steroid injections in the back pain in the past. She is saturating 94% on room air. Vital Signs Date Time Temp Pulse Resp B/P B/P Pulse O2 O2 Flow FiO2 Mean Ox Delivery Rate 02/08 1305 96.9 73 16 124/60 96 Nasal 2.0L Cannula 02/08 1052 76 18 135/71 95 Nasal 2.0L Cannula 02/08 1051 96.8 76 18 135/71 02/08 0719 96.8 73 20 130/58 96 Nasal 2.0L Cannula 02/08 0559 97.1 73 119/93 02/08 0350 97.4 88 18 130/56 02/08 0350 97.4 88 18 130/56 96 Nasal 2.0L Cannula 02/08 0133 97.0 126 18 153/89 95 Nasal 2.0L Cannula 02/08 0034 95.2 130 18 148/66 95 Room Air Gen. appearance: Not in any distress. Heart: S1-S2 regular Lungs: Clear to auscultation bilaterally Abdomen: Soft, nontender with normal bowel sounds Extremities: Trace pedal edema Skin: Intact with no rashes. Neurologic: Alert and oriented 3 with no gross deficit. Laboratory Tests 02/08/17 1152: Troponin I < 0.01 02/08/17 0900: PT 10.0, INR 0.95, APTT 71 H 02/08/17 0550: Anion Gap 7, Estimated GFR > 60, BUN/Creatinine Ratio 22.9, Troponin I < 0.01, Triglycerides 321 H, Cholesterol 185, LDL Cholesterol, Calc 74, HDL Cholesterol 47, Cholesterol/HDL Ratio 4, CBC w Diff NO MAN DIFF REQ, RBC 4.23, MCV 92.1, MCH 30.6, RDW 13.3, MPV 10.1, Gran % 53.0, Lymphocytes % 31.4, Monocytes % 8.8, Eosinophils % 6.2 H, Basophils % 0.6, Absolute Granulocytes 4.7, Absolute Lymphocytes 2.8, Absolute Monocytes 0.8 H, Absolute Eosinophils 0.6, Absolute Basophils 0.1, PUBS MCHC 33.2 02/08/17 0040: Anion Gap 11, Estimated GFR > 60, BUN/Creatinine Ratio 21.3, Glucose 95, Calcium 10.2, Magnesium 2.1, Total Bilirubin 0.6, Direct Bilirubin 0.1, AST 21, ALT 38, Alkaline Phosphatase 81, Troponin I < 0.01, Total Protein 6.8, Albumin 4.1, Amylase 41, Lipase 59, TSH 2.480, Thyroxine (T4) 7.5, PT 10.4, INR 0.99, APTT 30 , D-Dimer High Sensitivty < 200, CBC w Diff NO MAN DIFF REQ, RBC 4.58, MCV 91.5, MCH 30.5, RDW 13.6, MPV 9.5, Gran % 49.1, Lymphocytes % 33.2, Monocytes % 11.5 H, Eosinophils % 5.9 H, Basophils % 0.3, Absolute Granulocytes 5.0, Absolute Lymphocytes 3.3, Absolute Monocytes 1.2 H, Absolute Eosinophils 0.6, Absolute Basophils 0, PUBS MCHC 33.3 Problems: 1. Chest pain 2. Chronic pain syndrome 3. Hypertension 4. Sinus Tachycardia, now resolved. Plan: -Acute coronary syndrome has been ruled out. She has no acute ischemic changes on her EKG. Cardiac enzymes are negative 2. She denies any further chest pain.She is currently maintaining saturation on room air. Her d-dimer is not suggestive of a pulmonary embolism. Lower extremity Dopplers are negative for DVT. -Awaiting cardiology evaluation. She will benefit from a stress test to rule out cardiac etiology to her chest pain. Awaiting results of echocardiogram. -Continue losartan for blood pressure control. -Pain management with Tylenol as needed -Follow-up with the cardiology service about need for continued anticoagulation therapy.
--- NOTE | 2017-02-08 18:23 | NUR ---
PT PROVIDED HEART HEALTHY DINNER, CLINICAL STATUS UNCHANGED
--- NOTE | 2017-02-08 19:20 | Cons- Cardiology ---
General Information and HPI Consulting Request Date of Consult: 02/08/17 Requested By: LEE ANN CHUNG MD History of Present Illness: Yesenia is a 71 year old female with history of hypertension, dyslipidemia and long standing palpitations. Last evening this patient noted a rapid heart beat that was followed by a severe chest discomfort. She did note some neck and bilateral arm discomfort but she was not sure if this was a radiation of her chest discomfort. Apparently this patient does have some chronic discomfort related to disc disease. She did, however, note diaphoresis and nausea. Otherwise, this patient denies shortness of breath or lightheadedness. A cardiac workup was two years ago which was unrevealing. Allergies/Medications Allergies: Coded Allergies: celecoxib (From CELEBREX) (Intermediate, UPSET STOMACH 02/08/17) naproxen (Intermediate, UPSET STOMACH 02/08/17) aspirin (GI UPSET 02/08/17) Home Med List: Cyanocobalamin (Vitamin B-12) (Cyanocobalamin Injection) 1,000 MCG/1 ML VIAL 1 ML IM Q30D SUPPLEMENT (Reported) Ergocalciferol (Vitamin D2) (Vitamin D2) 50,000 UNIT CAPSULE 1 CAP PO Q2W SUPPLEMENT (Reported) Fenofibric Acid (Choline) (Fenofibric Acid) 45 MG CAPSULE.DR 1 TAB PO DAILY CHOLESTEROL (Reported) Losartan Potassium (Cozaar) 50 MG TABLET 1 TAB PO DAILY HEART (Reported) Pantoprazole Sodium 40 MG TABLET.DR 1 TAB PO DAILY GI (Reported) Prednisone 10 MG TABLET 1 TAB PO DAILY STEROID (Reported) Review of Systems Review of Systems: Back pain Past History Travel History Traveled to [place] past 21 day No Medical History Neurological: NONE EENT: NONE Cardiovascular: hypertension, hyperlipidemia, "MAYBE [place]" Respiratory: NONE Gastrointestinal: fatty liver Hepatic: NONE Renal: NONE Musculoskeletal: sciatica, SPINAL FLUID/ PAIN HERNIATED DISC NECK PINCHED NERVES IN NECK RUPTERED DISK Psychiatric: NONE Endocrine: vitamin D deficiency, VITAMIN B 12 DEFICIENCY Blood Disorders: NONE Cancer(s): NONE 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 Home Who Do You Live With? spouse Smoking Status: Never Smoked ETOH Use: denies use Functional Ability ADLs Independent: dressing, eating, toileting, bathing. Ambulation: independent IADLs Independent: shopping, housework, finances, food prep, telephone, transportation , medication admin. Exam & Diagnostic Data Vital Signs and I&O Vital Signs Date Time Temp Pulse Resp B/P B/P Pulse O2 O2 Flow FiO2 Mean Ox Delivery Rate 02/08 1305 96.9 73 16 124/60 96 Nasal 2.0L Cannula 02/08 1052 76 18 135/71 95 Nasal 2.0L Cannula 02/08 1051 96.8 76 18 135/71 02/08 0719 96.8 73 20 130/58 96 Nasal 2.0L Cannula 02/08 0559 97.1 73 119/93 02/08 0350 97.4 88 18 130/56 02/08 0350 97.4 88 18 130/56 96 Nasal 2.0L Cannula 02/08 0133 97.0 126 18 153/89 95 Nasal 2.0L Cannula 02/08 0034 95.2 130 18 148/66 95 Room Air Intake & Output 02/08 1600 02/08 0800 02/08 0000 02/07 1600 02/07 0800 02/07 0000 Intake Total Output Total Balance Patient 183 lb Weight Weight Reported by Patient Measurement Method Physical Exam: General: WD/ WN female in NAD; alert and oriented x 3 HEENT: NC/ AT, PERRL, EOMI Neck: no JVD, no carotid bruit Heart: RRR w/o murmur Lungs: clear bilaterally ABdomen: soft, NT, +ve bowel sounds Extremities: no edema Diagnostic Data EKG Results sinus tahycardia Assessment/Plan Assessment/Plan * This patient has tachycardia associated with palpitations which apparently is not a new problem. After she noted palpitations she did have chest discomfort that was very suggestive of stress induced angina although it was not to the degree that it caused any rise in cardiac enzymes consistent with an [place]. This patient does have multiple risk factors for coronary artery disease as well. I would recommend a cardiac catheterization for definitive diagnosis. We will pursue this on Wednesday. * Continue aspirin, Losartan, Atorvastatin and begin Metoprolol at 25mg BID. * Obtain an echocardiogram. Consult Acknowledgment - Thank you for your consult request.
--- NOTE | 2017-02-08 20:33 | NUR ---
PT OFFERING NO COMPLAINTS AT THIS TIME ALL V.S.S. HEPARIN DRIP INFUSING UNREMARKABLY
[2017-02-08] MEDS ORDERED: ATORVASTATIN CA40 M1 PO (22:22)
[2017-02-08] MEDS ORDERED: METOPROLOL TART25 M1 PO (22:23)
[2017-02-08] MEDS ORDERED: ASPIRIN81 M4 PO (22:23)
--- NOTE | 2017-02-08 22:26 | Patient Discharge Instructions ---
Discharge Instructions General Discharge Information You were seen/treated for: Angina Special Instructions: Follow up with PCP in a week after discharge Follow up with Cardiac Cath Tech in a week after discharge. Diet Continue normal diet: Yes Recommended Diet: Heart Healthy Activity Full Activity/No Limits: No Activity Self Limited: Yes Acute Coronary Syndrome Inclusion Criteria At DC or during hospital stay patient has or had the following: ACS DIAGNOSIS No Discharge Core Measures Meds if any: Prescribed or Continued at Discharge Meds if any: NOT Prescribed or Continued at Discharge Congestive Heart Failure Inclusion Criteria At DC or during hospital stay patient has or had the following: CHF DIAGNOSIS No Discharge Core Measures Meds if any: Prescribed or Continued at Discharge Meds if any: NOT Prescribed or Continued at Discharge Cerebrovascular accident Inclusion Criteria At DC or during hospital stay patient has or had the following: CVA/TIA Diagnosis No Discharge Core Measures Meds if any: Prescribed or Continued at Discharge Meds if any: NOT Prescribed or Continued at Discharge Venous thromboembolism Inclusion Criteria VTE Diagnosis No VTE Type NONE VTE Confirmed by (Test) NONE Discharge Core Measures - Per Current guidelines, there needs to be overlap - treatment for the first 5 days of Warfarin therapy. - If discharged on Warfarin prior to 5 days of - overlap therapy, the patient will need to be - assessed for post discharge needs including - *Post discharge parental anticoagulation - *Warfarin and/or parental anticoagulation education - *Follow up date to check INR post discharge At least 5 days overlap therapy as Inpatient No Meds if any: Prescribed or Continued at Discharge Note: Overlap Therapy is Warfarin and Anticoagulant Meds if any: NOT Prescribed or Continued at Discharge
[2017-02-08 22:33] LABS: PT 11.6 SEC (9.4-12.5); PTT 72 SEC (25-37)
--- NOTE | 2017-02-08 22:36 | NUR ---
PT MEDICATED DIRECTED. BLOOD DRAWN FOR PT/PTT WAITING FOR RESULTS. CLINICAL STATUS UNCHANGED
--- NOTE | 2017-02-08 22:46 | NUR ---
NO CHANGE IN HEPARIN RATE. PT MOVED TO HOSPITAL BED FOR COMFORT AND SAFETY. CLINICAL STATUS UNCHANGED.
--- NOTE | 2017-02-08 23:15 | NUR ---
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 CLINICAL STATUS UNCHANGED.
--- NOTE | 2017-02-09 00:43 | NUR ---
ASSUMED CARE OF PT, PT RESTING COMFORTABLY ON HOSPITAL BED. HEPARIN GTT INFUSING AT 19.9 ML/HR WITHOUT DIFFICULTY.
--- NOTE | 2017-02-09 03:16 | NUR ---
ASSUMED PRIMARY CARE, HEPARIN DRIP CONTINUES TO INFUSE. PT REMAINS OBS/TELE WILL IPOC, NO ORDER FOR CONTINUED OBS, CHARGE NURSE AWARE. HEPARIN REMAINS AT 19.9. PT OFFERS NO CO MONITOR SINUS WITHOUT ECTOPY, WILL CLARIFY ORDERS.
--- NOTE | 2017-02-09 03:53 | NUR ---
discussed with dr. pitt, pt to remain admitted until . 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 pt up to br and denieed any co. no cp no sob. will await new orders.
[2017-02-09 03:57] VITALS: BP 125/61
--- NOTE | 2017-02-09 07:29 | PN- Housestaff ---
DAKOTA SALGADO MD,[facility] 02/09/17 0729: Subjective Follow-up For: Chest pain rule out ACS History of hypertension and hyperlipidemia History of palpitations Complaints: no complaints Tele-Events Since Last Visit: No overnight events Subjective: Patient feels better. She slept well overnight. Although she did have one episode of 5 minutes of chest discomfort which was relieved by cough. She denied any palpitations overnight. Review of Systems Constitutional: Denies: chills, fever. EENTM: Denies: visual changes. Cardiovascular: Denies: chest pain, palpitations. Respiratory: Reports: cough. Denies: short of breath. Gastrointestinal: Denies: abdominal pain, nausea, vomiting. Genitourinary: Denies: dysuria. Objective Last 24 Hrs of Vital Signs/I&O Vital Signs Date Time Temp Pulse Resp B/P B/P Pulse O2 O2 Flow FiO2 Mean Ox Delivery Rate 02/09 0905 97.4 78 18 127/59 95 Room Air 02/09 0357 96.8 76 20 125/61 96 Nasal 2.0L Cannula 02/09 0339 96.8 76 20 125/61 96 Nasal 2.0L Cannula 02/08 2300 96.9 79 17 128/59 96 Nasal 2.0L Cannula 02/08 2236 97.9 74 18 122/70 02/08 1929 97.9 74 18 122/70 96 02/08 1305 96.9 73 16 124/60 96 Nasal 2.0L Cannula 02/08 1052 76 18 135/71 95 Nasal 2.0L Cannula 02/08 1051 96.8 76 18 135/71 Intake & Output 02/09 1600 02/09 0800 02/09 0000 Intake Total Output Total Balance Patient 183 lb Weight Physical Exam General Appearance: Alert, Oriented X3, Cooperative, No Acute Distress HEENT: Atraumatic Neck: No JVD Cardiovascular: Regular Rate, Normal S1, Normal S2, No Murmurs Lungs: Clear to Auscultation, Normal Air Movement Abdomen: Normal Bowel Sounds, Soft, No Tenderness Neurological: Normal Speech, Normal Tone, Sensation Intact Extremities: trace bilateral lower extremity tumor improved Vascular: Normal Pulses Current Medications: Current Medications Sig/Sami Start time Last Medication Dose Route Stop Time Status Admin Aspirin 81 MG DAILY 02/08 1000 AC 02/08 PO 1051 Atorvastatin Calcium 40 MG 1700 02/08 1700 AC 02/08 PO 2000 Fenofibrate 48 MG DAILY 02/08 1000 AC 02/08 PO 1051 Heparin Sodium 25,000 UNIT Q24H 02/08 0230 AC 02/09 (Porcine) IV 0321 Sodium Chloride 500 ML Losartan Potassium 50 MG DAILY 02/08 1000 AC 02/08 PO 1051 Metoprolol Tartrate 0 .STK-MED ONE 02/08 2235 DC PO Metoprolol Tartrate 25 MG BID 02/08 2200 AC 02/08 PO 2236 Morphine Sulfate 2 MG Q4P PRN 02/08 0345 AC IV Multivitamins 1 TAB DAILY 02/08 1000 AC 02/08 PO 1051 Omeprazole 0 .STK-MED ONE 02/09 0644 DC PO Omeprazole 40 MG DAILY AC 02/08 0700 AC 02/09 PO 0715 Prochlorperazine 10 MG Q6P PRN 02/08 0345 AC IV Sodium Chloride 1,000 ML .[id number] 02/08 0345 AC 02/09 IV 0638 Last 24 Hrs of Lab/Noel Results Last 24 Hrs of Labs/Mics: Laboratory Tests 02/08/17 2152: PT 11.6, INR 1.11, APTT 72 H 02/08/17 1152: Troponin I < 0.01 Lines/Diet/Fluids Lines: peripheral lines Restraints: none Assessment/Plan Assessment: 71 year old woman with past medical history of hypertension, dyslipidemia and occasional palpitations came to emergency department with chest pain. - Patient was admitted on telemetry floor in order to rule out acute coronary syndrome -No acute EKG ST changes and negative troponin 0.01 x 3. - Hemodynamically stable, trace B/L Lowr extremity edema improved - CXR shows no signs of fluid overload. - Cardio consult was placed and recommended cardiac catheterization for stress- induced angina - Results of echocardiogram pending - Consider repeat ECHO - Continue with IV heaprin drip as per cardio - Continue losartan 50 mg daily - Continue Metoprolol 25 mg PO Daily - Continue with ASA 81 mg Po daily. - Continue (Heart Healthy Diet), patient will be nothing by mouth overnight for cardiac catheterization Tomorrow Dyslipidemia/triglyceridemia - lipid panel checked and showed triglycerides of 321 - Continue with fenofibrate and statins - Patient was counseled about lifestyle modifications History of hypertension Continue with losartan and metoprolol Patient is Full code Patient is on Heart healthy diet Patient is on IV heaprin for DVT Prophylaxis Patient is on pain mnagement Problem List: 1. Chest pain Pain Ratin Pain Location: NA Pain Goal: Pain 4 or less Pain Plan: Pain management with morphine Tomorrow's Labs & Rationales: CBC, INR and BEP and patient is going for CATH DVT/Prophylaxis: pharmacological DION SCHMITZ,KARENMICHAELLETony 02/09/17 1638: Attending MD Review Statement Attending Statement Attending MD Statement: examined this patient, discuss w/resident/PA/FIRST HELPER, agreed w/resident/PA/FIRST HELPER, reviewed EMR data (avail), discussed with nursing, discussed with case mgmt, amended to note Attending Assessment/Plan: Patient seen and examined. Resting comfortably not in acute distress. No issues overnight and no events on telemetry. She denies any further chest pain or shortness of breath. She remains hemodynamically stable. The concern is that she likely has underlying coronary disease given her age and risk factors that became symptomatic after her episode of sinus tachycardia. In view of her likelihood of having symptomatic coronary artery disease the cardiology service is recommending proceeding with cardiac catheterization tomorrow for definitive diagnosis. This has been expected to the patient and she verbalized understanding. As she is symptom-free at present with no ischemic changes on her EKG and negative cardiac enzymes IV anticoagulation will be discontinued. She'll be continued on aspirin, beta deisy and statin therapy.
--- NOTE | 2017-02-09 08:09 | NUR ---
PT GIVEN HOT TEA AMBULATED TO BR GAIT STEADY
--- NOTE | 2017-02-09 08:28 | NUR ---
DR. CHINCHILLA IN ROOM FOR NELLY
--- NOTE | 2017-02-09 08:34 | NUR ---
ALPS TO BILAT LOWER EXT.
--- NOTE | 2017-02-09 10:02 | NUR ---
FOOD TRAY ORDERED
[2017-02-09 10:53] LABS: PTT 74 SEC (25-37)
--- NOTE | 2017-02-09 11:03 | NUR ---
PT PTT 74 NO CHANGE IN HEPARIN DRIP NEXT PTT DUE IN 12 HOURS
--- NOTE | 2017-02-09 11:48 | NUR ---
[facility] ASSIGNMENT [id number]
--- NOTE | 2017-02-09 11:59 | NUR ---
REPORT GIVEN TO GABINO ACEVEDO
--- NOTE | 2017-02-09 12:02 | NUR ---
WAITING FOR ROOM TO BE CLEANED
[2017-02-09 13:48] VITALS: BP 132/72
--- NOTE | 2017-02-09 14:16 | Discharge Summary ---
See Addendum Visit Information Visit Dates Admission Date: 02/08/17 Discharge Date: 02/09/17 Hospital Course Course Attending Physician: LEE ANN CHUNG MD Primary Care Physician: FERNANDO LOZANO MD Hospital Course: 71 year old woman with past medical history of hypertension, dyslipidemia and occasional palpitations came to emergency department with chest pain. Vitals on admission, patient afebrile, tachycardic, no tachypnea, systolic blood pressure 148/66, oxygen saturation 95% on 2 L of nasal cannula. The time person and place cooperative not in any acute distress, no JVD, S1 and S2 audible with regular rhythm, overall clear lung examination, benign abdominal and neurological examination. Labs on admission showed normal CBC BMP and LFTs, d-dimer of less than 200. No deep venous thrombosis demonstrated on doppler US. Patient was admitted on telemetry floor in order to rule out acute coronary syndrome Chest pain rule out ACS Patient was started on IV heparin drip along with beta blockers and aspirin. After admission patient remained fairly stable and complained of one episode of chest discomfort which according to her was relieved by cough. No acute EKG ST changes were seen and negative troponin 0.01 x 3. Cardiology consult was placed and recommended cardiac catheterization for stress-induced angina. Results of echocardiogram are still pending. Patient was eventually transferred to [facility] for cardiac catheterization. Dyslipidemia/triglyceridemia Lipid panel checked and showed triglycerides of 321. We continued with fenofibrate and statins. Patient was counseled about lifestyle modifications History of hypertension We continued with losartan home dose Patient was Full code Patient was on Heart healthy diet Patient was on IV heaprin for DVT Prophylaxis Patient was on pain mnagement Complications: None Allergies: Coded Allergies: celecoxib (From CELEBREX) (Intermediate, UPSET STOMACH 02/08/17) naproxen (Intermediate, UPSET STOMACH 02/08/17) aspirin (GI UPSET 02/08/17) Disposition Summary Disposition Principal Diagnosis: Chest pain rule out ACS Additional Diagnosis: Dyslipidemia/triglyceridemia History of hypertension Discharge Disposition: other general hospital Discharge Instructions General Discharge Information Code Status: Full Code Patient's Diet: Heart healthy diet Patient's Activity: As tolerated Follow-Up Instructions/Appts: Follow up with PCP in a week after discharge Follow up with Graphics Editor in a week after discharge. Medications at Discharge Discharge Medications: Continue taking these medications: Losartan Potassium (Cozaar) 50 MG TABLET 1 Tablet ORAL DAILY Fenofibric Acid (Choline) (Fenofibric Acid) 45 MG CAPSULE.DR 1 Tablet ORAL DAILY Ergocalciferol (Vitamin D2) (Vitamin D2) 50,000 UNIT CAPSULE 1 Capsule ORAL EVERY 2 WEEKS Comments: PER PT Cyanocobalamin (Vitamin B-12) (Cyanocobalamin Injection) 1,000 MCG/1 ML VIAL 1 Milliliters INTRAMUSC ONCE A MONTH Comments: PER PT Prednisone (Prednisone) 10 MG TABLET 1 Tablet ORAL DAILY as needed for ARTHRITIS Qty = 21 Pantoprazole Sodium (Pantoprazole Sodium) 40 MG TABLET.DR 1 Tablet ORAL DAILY Qty = 30 Start taking the following new medications: Atorvastatin Calcium (Atorvastatin Calcium) 40 MG TABLET 1 Tablet ORAL 5 PM Qty = 90 No Refills Metoprolol Tartrate (Metoprolol Tartrate) 25 MG TABLET 1 Tablet ORAL TWICE DAILY Qty = 90 No Refills Aspirin (Aspirin*) 81 MG TAB.CHEW 1 Tablet ORAL DAILY Qty = 90 No Refills Copies To: CARIDAD ASHLEY M.D, MD PhD,[facility]
--- NOTE | 2017-02-09 15:46 | PN- Cardiology ---
Subjective Subjective: * No current chest pain. * Patient ruled out for an NM. * sinus rhythm Objective Vital Signs and I&Os Vital Signs Date Time Temp Pulse Resp B/P B/P Pulse O2 O2 Flow FiO2 Mean Ox Delivery Rate 02/09 1350 Nasal 2.0L Cannula 02/09 1348 98.9 72 20 132/72 96 02/09 1307 97.7 75 16 171/59 95 Room Air 02/09 1100 96.4 77 16 120/57 96 Nasal Cannula 02/09 1035 78 18 127/59 02/09 1022 97.4 78 18 127/59 02/09 0905 97.4 78 18 127/59 95 Room Air 02/09 0357 96.8 76 20 125/61 96 Nasal 2.0L Cannula 02/09 0339 96.8 76 20 125/61 96 Nasal 2.0L Cannula 02/08 2300 96.9 79 17 128/59 96 Nasal 2.0L Cannula 02/08 2236 97.9 74 18 122/70 02/08 1929 97.9 74 18 122/70 96 Intake & Output 02/09 1600 02/09 0800 02/09 0000 02/08 1600 02/08 0800 02/08 0000 Intake Total Output Total Balance Patient 183 lb 183 lb Weight Weight Reported by Patient Measurement Method Physical Exam: General: WD/ WN female in NAD; alert and oriented x 3 Neck: no JVD, no carotid bruit Heart: RRR w/o murmur Lungs: clear bilaterally Extremities: no edema Assessment/Plan Assessment/Plan * This patient ruled out for an ACS but may well have myocardial ischemia and angina. We will pursue a cardiac catheterization for unequivocal diagnosis and treatment. I suspect stable but significant coronary artery disease which, in the setting of tachycardia, results in chest pain. NPO except medications overnight. * Continue aspirin, Losartan, Atorvastatin and Metoprolol at 25mg BID. * Obtain an echocardiogram. Continue telemetry? Yes
[2017-02-09 16:29] VITALS: BP 130/70; BP 144/60
--- NOTE | 2017-02-09 18:45 | RADIOLOGY REPORT ---
EXAMINATION: XR HIP, LEFT CLINICAL INFORMATION: Pain. COMPARISON: Left hip 07/10/2016 TECHNIQUE: Two views of the left hip. FINDINGS: No fracture. No dislocation. Bone and joint are normal. No soft tissue abnormality. IMPRESSION: Normal left hip.
[2017-02-10] VITALS: BP 118/60
[2017-02-10 07:00] VITALS: BP 104/60
[2017-02-10 08:23] LABS: ABSOLUTE BASOPHIL COUNT 0 /CUMM (0.0-0.2); ABSOLUTE EOSINOPHIL COUNT 0.5 /CUMM (0.0-0.7); ABSOLUTE GRANULOCYTE CT 3.8 /CUMM (1.4-6.5); ABSOLUTE LYMPH COUNT 2.1 /CUMM (1.2-3.4); ABSOLUTE MONOCYTE COUNT 0.8 /CUMM (0.10-0.60); BASOPHIL % 0.4 % (0.0-2.0); EOSINOPHIL % 6.4 % (0-5); GRANULOCYTE % 52.9 % (42.2-75.2); HEMATOCRIT 37.9 % (37-47); MEAN CORPUSCULAR HGB 30.7 PG (27.0-31.0); MEAN CORPUSCULAR HGB CONC 33.4 G/DL (33.0-37.0); MEAN CORPUSCULAR VOLUME 91.9 FL (81.0-99.0); MEAN PLATELET VOLUME 9.8 FL (7.4-10.4); PLATELET COUNT 176 /CUMM (130-400); RBC DISTRIBUTION WIDTH 13.6 % (11.5-14.5); RED BLOOD CELL CT 4.12 /CUMM (4.20-5.40); WHITE BLOOD CELL COUNT 7.2 /CUMM (4.8-10.8)
[2017-02-10 08:29] LABS: PT 10.6 SEC (9.4-12.5)
--- NOTE | 2017-02-10 08:59 | PN- Housestaff ---
See Addendum Subjective Follow-up For: Chest pain rule out ACS History of hypertension and hyperlipidemia History of palpitations Complaints: no complaints Tele-Events Since Last Visit: No overnight events Subjective: Patient did not have any overnight. Review of Systems Constitutional: Denies: chills, fever. EENTM: Denies: visual changes. Cardiovascular: Denies: chest pain, palpitations. Respiratory: Denies: cough, short of breath. Gastrointestinal: Denies: abdominal pain, nausea, vomiting. Objective Last 24 Hrs of Vital Signs/I&O Vital Signs Date Time Temp Pulse Resp B/P B/P Pulse O2 O2 Flow FiO2 Mean Ox Delivery Rate 02/10 0924 67 104/60 02/10 0924 67 104/60 02/10 0800 Nasal 2.0L Cannula 02/10 0700 98.0 67 20 104/60 95 Nasal 2.0L Cannula 02/10 0000 98.2 74 18 118/60 97 Nasal 2.0L Cannula 02/10 0000 96 Nasal 2.0L Cannula 02/09 2134 62 148/72 02/09 1629 98.0 71 20 130/70 95 02/09 1350 Nasal 2.0L Cannula 02/09 1348 98.9 72 20 132/72 96 02/09 1307 97.7 75 16 171/59 95 Room Air Intake & Output 02/10 1600 02/10 0800 02/10 0000 Intake Total 870 345 Output Total Balance 870 345 Intake, IV 750 225 Intake, Oral 120 120 Physical Exam General Appearance: Alert, Oriented X3, Cooperative, No Acute Distress HEENT: Atraumatic Neck: No JVD Cardiovascular: Regular Rate, Normal S1, Normal S2, No Murmurs Lungs: Clear to Auscultation, Normal Air Movement Abdomen: Normal Bowel Sounds, Soft, No Tenderness Neurological: Normal Speech, Normal Tone, Sensation Intact Extremities: Trace bilateral lower extremity edema improved Current Medications: Current Medications Sig/Sami Start time Last Medication Dose Route Stop Time Status Admin Aspirin 81 MG DAILY 02/08 1000 DCD 02/09 PO 1022 Atorvastatin Calcium 40 MG 1700 02/08 1700 DCD 02/09 PO 1645 Fenofibrate 48 MG DAILY / 1000 DCD 02/10 PO 0924 Heparin Sodium 25,000 UNIT Q24H 02/08 0230 DC 02/09 (Porcine) IV 0321 Sodium Chloride 500 ML Losartan Potassium 50 MG DAILY 02/08 1000 DCD 02/10 PO 0924 Metoprolol Tartrate 25 MG BID 02/08 2200 DCD 02/10 PO 0924 Morphine Sulfate 0.5 MG Q6-PRN PRN 02/09 0915 DCD IV Multivitamins 1 TAB DAILY 02/08 1000 DCD 02/10 PO 0924 Omeprazole 40 MG DAILY AC 02/08 0700 DCD 02/10 PO 0648 Prochlorperazine 10 MG Q6P PRN 02/08 0345 DCD 02/10 IV 0927 Sodium Chloride 1,000 ML .[id number] 02/08 0345 DCD 02/10 IV 0509 Last 24 Hrs of Lab/Noel Results Last 24 Hrs of Labs/Mics: Laboratory Tests 02/10/17 0720: Anion Gap 9, Estimated GFR > 60, BUN/Creatinine Ratio 18.8, PT 10.6, INR 1.01, CBC w Diff NO MAN DIFF REQ, RBC 4.12 L, MCV 91.9, MCH 30.7, RDW 13.6, MPV 9.8, Gran % 52.9, Lymphocytes % 28.6, Monocytes % 11.7 H, Eosinophils % 6.4 H, Basophils % 0.4, Absolute Granulocytes 3.8, Absolute Lymphocytes 2.1, Absolute Monocytes 0.8 H, Absolute Eosinophils 0.5, Absolute Basophils 0, PUBS MCHC 33.4 02/09/17 2230: APTT Cancelled Lines/Diet/Fluids Lines: peripheral lines Restraints: none Assessment/Plan Assessment: 71 year old woman with past medical history of hypertension, dyslipidemia and occasional palpitations came to emergency department with chest pain. - Patient was admitted on telemetry floor in order to rule out acute coronary syndrome -No acute EKG ST changes and negative troponin 0.01 x 3. - Hemodynamically stable, trace B/L Lowr extremity edema improved - CXR shows no signs of fluid overload. - Cardio consult was placed and recommended cardiac catheterization for stress- induced angina - Results of echocardiogram pending - Continue with IV heaprin drip as per cardio - Continue losartan 50 mg daily - Continue Metoprolol 25 mg PO Daily - Continue with ASA 81 mg Po daily. - Continue (Heart Healthy Diet), patient will go for cardiac catheterization Today Dyslipidemia/triglyceridemia - lipid panel checked and showed triglycerides of 321 - Continue with fenofibrate and statins - Patient was counseled about lifestyle modifications History of hypertension Continue with losartan and metoprolol Patient is Full code Patient is on Heart healthy diet Patient is on IV heaprin for DVT Prophylaxis Patient is on pain mnagement Problem List: 1. Chest pain Pain Ratin Pain Location: NA Pain Goal: Pain 4 or less Pain Plan: PAIN MANAGEMENT PATHWAY Tomorrow's Labs & Rationales: NONE
[2017-02-10 09:24] VITALS: BP 104/60
== END 2017-02-10 11:29 | disposition short-term general hospital (02) | DRG 313 ==
LOC: ERH 00:25 → ERHI 02:27 → 1NO 02-09 03:53 → ERHI 02-09 03:53 → ENRESERV 02-09 11:45 → ENTRNSPT 02-09 12:59 → EDTRNSPTSTS 02-09 13:22 → EDTRNSPT 02-09 13:22 → CMPTRNSPT 02-09 13:29 → 1NO 02-09 13:33 → ENPENDDIS 02-10 09:12 → 1NO 02-10 11:29
PROVIDERS: Internal Medicine Hematology & Oncology; Pediatrics; Student in an Organized Health Care Education/Training Program; ADMIT Internal Medicine
DX: R07.9 Chest pain, unspecified (principal); I10 Essential (primary) hypertension; K21.9 Gastro-esophageal reflux disease without esophagitis; E78.5 Hyperlipidemia, unspecified; M16.12 Unilateral primary osteoarthritis, left hip
CPT/HCPCS: 1NP; 36415; 73502-LT; 82436; 93005; 93010; 93970; 96374; 96375; 99291; J0131; J0780; J1644; J3490

== ENCOUNTER 2017-09-01 21:35 | Emergency (ER) | payer OTHER, MEDICARE ==
[~2017-09-01] VITALS: Ht 157.5 cm; Wt 72.6 kg
[~2017-09-01 21:35] MED LIST changes: +ASPIRIN81 M4 PO; +ATORVASTATIN CA40 M1 PO; +METOPROLOL TART25 M1 PO
[2017-09-01 22:02] LABS: ABSOLUTE BASOPHIL COUNT 0.1 /CUMM (0.0-0.2); ABSOLUTE EOSINOPHIL COUNT 0.5 /CUMM (0.0-0.7); ABSOLUTE GRANULOCYTE CT 3.6 /CUMM (1.4-6.5); ABSOLUTE LYMPH COUNT 2.2 /CUMM (1.2-3.4); ABSOLUTE MONOCYTE COUNT 1.5 /CUMM (0.10-0.60); BASOPHIL % 1.6 % (0.0-2.0); EOSINOPHIL % 6.8 % (0-5); GRANULOCYTE % 44.9 % (42.2-75.2); MEAN CORPUSCULAR HGB 30.5 PG (27.0-31.0); MEAN CORPUSCULAR HGB CONC 33.1 G/DL (33.0-37.0); MEAN CORPUSCULAR VOLUME 92.1 FL (81.0-99.0); MEAN PLATELET VOLUME 9.4 FL (7.4-10.4); PLATELET COUNT 201 /CUMM (130-400); RBC DISTRIBUTION WIDTH 14.3 % (11.5-14.5); RED BLOOD CELL CT 4.55 /CUMM (4.20-5.40)
--- NOTE | 2017-09-01 22:55 | RADIOLOGY REPORT ---
EXAMINATION: XR CHEST CLINICAL INFORMATION: Cough. COMPARISON: Chest x-ray 05/15/2017 TECHNIQUE: 2 views of the chest were obtained. FINDINGS: Lungs are clear. No pulmonary vascular congestion. There is no pleural effusion. The heart size is normal. The cardiac and mediastinal contours are normal. There are calcifications of the thoracic aorta. There are multilevel degenerative changes of dorsal spine. IMPRESSION: Unremarkable examination.
--- NOTE | 2017-09-02 00:35 | ED INFLUENZA/URI COMPLAINT ---
History of Present Illness General Chief Complaint: Chest Pain Stated Complaint: " I HAVE THE FLU AND NOW I HAVE CHEST PAIN" Source: patient, old records Exam Limitations: no limitations Vital Signs & Intake/Output Vital Signs & Intake/Output Vital Signs Date Time Temp Pulse Resp B/P B/P Pulse O2 O2 Flow FiO2 Mean Ox Delivery Rate 09/02 0331 98.2 82 22 141/65 96 09/02 0240 99.1 92 16 134/62 94 Room Air 09/02 0032 94 09/01 2355 Room Air 09/01 2350 98.4 93 20 185/77 96 Room Air 09/01 2147 98.6 101 16 119/78 96 Room Air ED Intake and Output 09/02 0000 09/01 1200 Intake Total Output Total Balance Patient 160 lb Weight Weight Estimated Measurement Method Allergies Coded Allergies: celecoxib (From CELEBREX) (Intermediate, UPSET STOMACH 02/08/17) naproxen (Intermediate, UPSET STOMACH 02/08/17) aspirin (GI UPSET 02/08/17) Reconcile Medications Albuterol Sulfate (Proair Hfa) 90 MCG HFA.AER.AD 2 PUF INH Q4-6 PRN PRN bronchitis Amoxicillin 875 MG TABLET 1 TAB PO BID sinusitis Aspirin (Aspirin*) 81 MG TAB.CHEW 1 TAB PO DAILY HEART HEALTH Atorvastatin Calcium 40 MG TABLET 1 TAB PO 1700 HYPERLIPIDEMIA Azithromycin (Zithromax) 250 MG TABLET 1 DP PO AD pna 2 the first day followed by 1 for days 2-5 Codeine Phosphate/Guaifenesi (Cheratussin AC Syrup) 10 MG-100 MG/5 ML LIQUID 5 -10 ML PO Q6P PRN cough Cyanocobalamin (Vitamin B-12) (Cyanocobalamin Injection) 1,000 MCG/1 ML VIAL 1 ML IM Q30D SUPPLEMENT (Reported) Ergocalciferol (Vitamin D2) (Vitamin D2) 50,000 UNIT CAPSULE 1 CAP PO Q2W SUPPLEMENT (Reported) Fenofibric Acid (Choline) (Fenofibric Acid) 45 MG CAPSULE.DR 1 TAB PO DAILY CHOLESTEROL (Reported) Losartan Potassium (Cozaar) 50 MG TABLET 1 TAB PO DAILY HEART (Reported) Methylprednisolone. (Medrol) 4 MG TAB.DS.PK 1 DP PO AD difficulty swallowing 6 on day 1 then reduce by one tablet daily until gone Metoprolol Tartrate 25 MG TABLET 1 TAB PO BID HEART DISEASE Oxymetazoline HCl (Afrin) 0.05 % SPRAY 2 SPRAY NASB BID sinusitis Pantoprazole Sodium 40 MG TABLET.DR 1 TAB PO DAILY GI (Reported) Prednisone 10 MG TABLET 1 TAB PO DAILY PRN ARTHRITIS (Reported) Prednisone 20 MG TABLET 1 TAB PO BID bronchospasm Triage Note: PT TO ER C/C COUGH, ABD PAIN AND NAUSEA X 3 DAYS. Triage Nurses Notes Reviewed? yes Onset: 3 days Duration: day(s):, constant, continues in ED Timing: recent history Severity: moderate, severe Prior Episodes/Possible Cause: illness exposure No Modifying Factors: none Associated Symptoms: chest pain, cough, dizziness, earache, fever/chills, headache, lightheadedness, muscle aches, nasal congestion, nasal drainage, sinus infection, sore throat LMP (ages 10-50): unknown : No Patient currently breastfeeds: No HPI: 2-3 days prior to admission patient complains of nasal congestion dizziness weakness anorexia productive cough myalgia chest pain with breathing and coughing with chills. She denies fever vomiting diarrhea headache dysuria rash bleeding. Past History Travel History Traveled to [place] past 21 day No Medical History Any Pertinent Medical History? 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 No Review of Systems Review of Systems Constitutional: Reports: see HPI, chills, malaise, weakness. EENTM: Reports: see HPI, nasal congestion, throat pain. Respiratory: Reports: see HPI, cough, sputum production, wheezing. Cardiovascular: Reports: see HPI, chest pain. GI: Reports: see HPI, nausea. Genitourinary: Reports: no symptoms. Musculoskeletal: Reports: see HPI, muscle pain. Skin: Reports: no symptoms. Neurological/Psychological: Reports: no symptoms. Hematologic/Endocrine: Reports: no symptoms. Immunologic/Allergic: Reports: no symptoms. All Other Systems: Reviewed and Negative Physical Exam Physical Exam General Appearance: well developed/nourished, alert, awake, anxious, moderate distress, obese Head: atraumatic, normal appearance Eyes: Bilateral: normal appearance, PERRL, EOMI. Ears, Nose, Throat: moist mucous membrane, Tympanic bulging, pharyngeal erythema Neck: normal inspection, supple, full range of motion, trachea midline, lymphadenopathy (R), lymphadenopathy (L) Respiratory: normal breath sounds, chest non-tender, no respiratory distress, quiet respiration, lungs clear Cardiovascular: regular rate/rhythm, normal peripheral pulses, norml femoral pulses equa Peripheral Pulses: 4+ carotid (R), 4+ carotid (L) Gastrointestinal: normal bowel sounds, soft, non-tender, no organomegaly Back: normal inspection, normal range of motion Extremities: normal inspection, normal capillary refill, normal range of motion, no edema Neurologic/Psych: no motor/sensory deficits, awake, alert, oriented x 3, normal gait, normal mood/affect, legal coordinator II-XII nml as tested Reflexes: 2+: bicep (R), bicep (L). Skin: intact, normal color, warm/dry Lymphatic: adenopathy Core Measures Sepsis Present: No Sepsis Focused Exam Completed? No Progress Differential Diagnosis: influenza, otitis, pneumonia, pharyngitis, sinusitis Plan of Care: Orders Procedure Date/time Status Add-on Test (ER Only) 09/02 0009 Active LIPASE 09/01 2149 Complete RAPID VIRAL INFLUENZA A 09/01 2142 Complete TROPONIN LEVEL 09/01 2141 Complete COMPREHENSIVE METABOLIC PANEL 09/01 2141 Complete CBC WITHOUT DIFFERENTIAL 09/01 2141 Complete EKG 09/01 2135 Active Laboratory Tests 09/01/17 2150: Anion Gap 11, Estimated GFR > 60, BUN/Creatinine Ratio 13.8, Glucose 126 H, Calcium 9.4, Total Bilirubin 1.0, AST 22, ALT 41, Alkaline Phosphatase 81, Troponin I < 0.01, Total Protein 6.9, Albumin 4.2, Globulin 2.7, Albumin/ Globulin Ratio 1.6, Lipase 67, CBC w Diff NO MAN DIFF REQ, RBC 4.55, MCV 92.1, MCH 30.5, RDW 14.3, MPV 9.4, Gran % 44.9, Lymphocytes % 28.0, Monocytes % 18.7 H, Eosinophils % 6.8 H, Basophils % 1.6, Absolute Granulocytes 3.6, Absolute Lymphocytes 2.2, Absolute Monocytes 1.5 H, Absolute Eosinophils 0.5, Absolute Basophils 0.1, PUBS MCHC 33.1 09/01/17 2143: Troponin I Cancelled Microbiology 09/01 2147 NASOPHARYN: Influenza Virus A & B Rapid Smear - COMP Initial ED EKG: none Departure Departure Time of Disposition: 220 Disposition: HOME OR SELF CARE Condition: Stable Clinical Impression Primary Impression: Otitis media Secondary Impressions: Bronchitis, Sinusitis Referrals: Kelli SCHMITZ,Meri Hernandez (PCP/Family) Departure Forms: Customer Survey General Discharge Information Prescriptions: Current Visit Scripts Codeine Phosphate/Guaifenesi (Cheratussin AC Syrup) 5-10 ML PO Q6P PRN cough #240 ML Amoxicillin 1 TAB PO BID #20 TAB Albuterol Sulfate (Proair Hfa) 2 PUF INH Q4-6 PRN PRN bronchitis #1 INHAL Prednisone 1 TAB PO BID #10 TAB Oxymetazoline HCl (Afrin) 2 SPRAY NASB BID #30 ML
[2017-09-02] MEDS ORDERED: PROAIR HFA8.5 GM INH (03:13)
[2017-09-02] MEDS ORDERED: AMOXICILLIN875 M1 PO (03:13)
[2017-09-02] MEDS ORDERED: PREDNISONE20 M1 PO (03:13)
[2017-09-02] MEDS ORDERED: AFRIN30 ML NASB (03:13)
[2017-09-02] MEDS ORDERED: CHERATUSSIN AC118 M1 PO (03:13)
[2017-09-02 03:31] VITALS: BP 141/65
== END 2017-09-02 03:32 ==
LOC: ERH 21:35
PROVIDERS: Emergency Medicine
DX: J40 Bronchitis, not specified as acute or chronic (principal); J32.9 Chronic sinusitis, unspecified; H66.90 Otitis media, unspecified, unspecified ear; R07.9 Chest pain, unspecified
CPT/HCPCS: 1263; 71046; 87804; 87804-59; 93005; 93010; 96361; 96374; 96375; J0131; J0696; J2405

== ENCOUNTER 2018-01-31 14:18 | Emergency (ER) | payer OTHER, MEDICARE ==
[~2018-01-31] VITALS: Ht 157.5 cm; Wt 81.6 kg
[~2018-01-31 14:18] MED LIST changes: +AFRIN30 ML NASB; +AMOXICILLIN875 M1 PO; +CHERATUSSIN AC118 M1 PO; +PREDNISONE20 M1 PO; +PROAIR HFA8.5 GM INH
--- NOTE | 2018-01-31 16:12 | ED DYSPNEA/ASTHMA COMPLAINT ---
History of Present Illness General Chief Complaint: General Adult Stated Complaint: ? REACTION TO MED ? NECK PAIN Source: patient Exam Limitations: no limitations Vital Signs & Intake/Output Vital Signs & Intake/Output Vital Signs Date Time Temp Pulse Resp B/P B/P Pulse O2 O2 Flow FiO2 Mean Ox Delivery Rate 01/31 1901 97.1 64 18 140/77 98 Room Air 01/31 1620 97 Room Air 01/31 1421 97.0 65 20 143/80 97 Room Air Allergies Coded Allergies: celecoxib (From CELEBREX) (Intermediate, UPSET STOMACH 02/08/17) naproxen (Intermediate, UPSET STOMACH 02/08/17) aspirin (GI UPSET 02/08/17) Reconcile Medications Albuterol Sulfate (Proair Hfa) 90 MCG HFA.AER.AD 2 PUF INH Q4-6 PRN PRN bronchitis Amoxicillin 875 MG TABLET 1 TAB PO BID sinusitis Aspirin (Aspirin*) 81 MG TAB.CHEW 1 TAB PO DAILY HEART HEALTH Atorvastatin Calcium 40 MG TABLET 1 TAB PO 1700 HYPERLIPIDEMIA Azithromycin (Zithromax) 250 MG TABLET 1 DP PO AD pna 2 the first day followed by 1 for days 2-5 Codeine Phosphate/Guaifenesi (Cheratussin AC Syrup) 10 MG-100 MG/5 ML LIQUID 5 -10 ML PO Q6P PRN cough Cyanocobalamin (Vitamin B-12) (Cyanocobalamin Injection) 1,000 MCG/1 ML VIAL 1 ML IM Q30D SUPPLEMENT (Reported) Ergocalciferol (Vitamin D2) (Vitamin D2) 50,000 UNIT CAPSULE 1 CAP PO Q2W SUPPLEMENT (Reported) Fenofibric Acid (Choline) (Fenofibric Acid) 45 MG CAPSULE.DR 1 TAB PO DAILY CHOLESTEROL (Reported) Losartan Potassium (Cozaar) 50 MG TABLET 1 TAB PO DAILY HEART (Reported) Methylprednisolone. (Medrol) 4 MG TAB.DS.PK 1 DP PO AD difficulty swallowing 6 on day 1 then reduce by one tablet daily until gone Methylprednisolone. (Medrol) 4 MG TAB.DS.PK 1 DP PO AD INFLAMMATION 6 on day 1 then reduce by one tablet daily until gone Metoprolol Tartrate 25 MG TABLET 1 TAB PO BID HEART DISEASE Oxymetazoline HCl (Afrin) 0.05 % SPRAY 2 SPRAY NASB BID sinusitis Pantoprazole Sodium 40 MG TABLET.DR 1 TAB PO DAILY GI (Reported) Prednisone 10 MG TABLET 1 TAB PO DAILY PRN ARTHRITIS (Reported) Prednisone 20 MG TABLET 1 TAB PO BID bronchospasm Triage Note: PT TO ED C/O NECK PAIN (CHRONIC) AND TROUBLE BREATHING WITH LAYING DOWN X 2 DAYS, WORSE LAST NIGHT. ALSO C/O LEFT EAR PAIN. RA SATS 97%, NO OBVIOUS RESP DISTRESS AT THIS TIME. Triage Nurses Notes Reviewed? yes Onset: Gradual Duration: constant Timing: remote history Severity: moderate HPI: Patient is a 72-year-old female with an extensive chronic history of cervical spine pain and cervical fusions and muscle spasms of the neck, hypertension and hyperlipidemia where old records also indicate the patient has presented on multiple occasions to the emergency room over the years for presenting complaints of today of an exacerbation of bilateral neck "swelling", neck pain with mild radiation pain to both her shoulders and shortness of breath and throat closing symptoms for the past 3 days. Patient states that her symptoms have completely resolved patient took previously given morphine and steroids prior to arrival. Patient denies any specific etiology or allergen exposure denies any tongue swelling lip swelling cough fever chills chest pain,, hemoptysis leg swelling (Adithya Mcdonald) Past History Travel History Traveled to [place] past 21 day No Medical History Any Pertinent Medical History? 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 No (Adithya Mcdonald) Review of Systems Review of Systems Constitutional: Reports: no symptoms. EENTM: Reports: no symptoms. Respiratory: Reports: see HPI. Cardiovascular: Reports: no symptoms. GI: Reports: no symptoms. Genitourinary: Reports: no symptoms. Musculoskeletal: Reports: see HPI. Skin: Reports: no symptoms. Neurological/Psychological: Reports: no symptoms. Hematologic/Endocrine: Reports: no symptoms. Immunologic/Allergic: Reports: no symptoms. All Other Systems: Reviewed and Negative (Adithya Mcdonald) Physical Exam Physical Exam General Appearance: no apparent distress, alert, comfortable Head: atraumatic Eyes: Bilateral: normal appearance, PERRL, EOMI. Ears, Nose, Throat: normal pharynx, normal ENT inspection, hearing grossly normal Neck: normal inspection, supple, limited range of motion, no midline tenderness Respiratory: normal breath sounds, chest non-tender, no respiratory distress Cardiovascular: regular rate/rhythm Gastrointestinal: normal bowel sounds, soft, non-tender Extremities: normal inspection, no edema Neurologic/Psych: no motor/sensory deficits, awake, alert Skin: intact, normal color, warm/dry Comments: Bilateral upper extremity myotomes and dermatomes intact Core Measures ACS in differential dx? No CVA/TIA Diagnosis No Sepsis Present: No Sepsis Focused Exam Completed? No (Adithya Mcdonald) Progress Differential Diagnosis: asthma, AMI, bronchitis, costochondritis, CHF, COPD, musculoskeletal pain, pericarditis, pulmonary embolism, pneumonia, pneumothorax, rib fracture, unstable angina Plan of Care: Orders Procedure Date/time Status THROAT CULTURE W/QUICK STREP 01/31 1636 Active TROPONIN LEVEL 01/31 1622 Complete COMPREHENSIVE METABOLIC PANEL 01/31 1622 Complete CBC WITHOUT DIFFERENTIAL 01/31 1622 Complete EKG 01/31 1622 Active Laboratory Tests 01/31/18 1746: Anion Gap 10, Estimated GFR > 60, BUN/Creatinine Ratio 22.5, Glucose 111 H, Calcium 9.3, Total Bilirubin 0.5, AST 18, ALT 29, Alkaline Phosphatase 68, Troponin I < 0.01, Total Protein 6.7, Albumin 4.0, Globulin 2.7, Albumin/ Globulin Ratio 1.5, CBC w Diff NO MAN DIFF REQ, RBC 4.50, MCV 93.1, MCH 30.7, MCHC 33.0, RDW 13.9, MPV 9.2, Gran % 66.3, Lymphocytes % 23.4, Monocytes % 9.4 H, Eosinophils % 0.6, Basophils % 0.3, Absolute Granulocytes 7.5 H, Absolute Lymphocytes 2.7, Absolute Monocytes 1.1 H, Absolute Eosinophils 0.1, Absolute Basophils 0 Differential diagnosis include anaphylaxis strep throat chronic neck pain angioedema Alfred angina peritonsillar abscess On initial examination patient is resting comfortably at bedside no concerns of anaphylaxis or angioedema no lip swelling tongue swelling stridor clear lungs auscultation patient does have limited range of motion of cervical spine however she denies any new mechanism of injury Previous MRI was reviewed no acute findings already discussed to follow up with the provider Patient states "DO I have to do the blood work and EKG?" EKG and blood work will be obtained for concerns of shortness of breath prior to arrival Patient had an unremarkable blood work and EKG. Patient has been resting comfortably at bedside she was strongly advised to follow-up with her surgeon for concerns of chronic neck pain and muscle spasms Initial ED EKG: normal intervals, normal p-waves, 56 BPM,NSR Comments: PATIENT: KATY MCCARTY PRESENT AGE: 72 PATIENT ACCOUNT NO: [id number] : 45 LOCATION: [facility].MRI ORDERING PHYSICIAN: Oksana Martinez MD SERVICE DATE: 01/04/18 EXAM TYPE: MRI - MRI-CERVICAL SPINE MR CERVICAL SPINE WITHOUT CONTRAST CLINICAL INFORMATION: 72-year-old with severe pain and numbness to the neck. COMPARISON: Cervical spine MRI 08/02/2015. TECHNIQUE: MRI of the cervical spine without contrast was obtained using routine sequences. FINDINGS: Straightening the cervical lordosis. Micrometallic artifact and solid interbody fusion at C4-C5 again noted. Progressive severe disc volume loss at C6-C7 and moderate disc volume loss at C5-C6. There is no bone marrow edema. There are no acute fractures. The craniocervical junction is unremarkable. No cord signal abnormality. The cervical arterial flow voids are maintained. No significant soft tissue findings. Partially imaged posterior fossa is unremarkable. Retropharyngeal course of the right cervical ICA. C2-C3: Severe left-sided hypertrophic facet arthropathy along with uncovertebral joint spurring results in severe left-sided foraminal stenosis that is similar to the prior exam. There is no central canal nor right foraminal stenosis. C3-C4: Disc osteophyte complex minimally indents the ventral thecal sac resulting in mild narrowing of the central canal. Uncovertebral joint spurring and significant hypertrophic facet arthropathy resulting in similar severe right and moderate left foraminal stenosis. C4-C5: Left paracentral osteophytic ridging mildly indents the ventral thecal sac. Uncovertebral joint spurring and hypertrophic facet arthropathy result in severe right-sided foraminal stenosis that is unchanged. C5-C6: Left paracentral disc osteophyte protrusion flattens the left ventral cord and results in moderate left-sided central canal stenosis. Uncovertebral joint hypertrophy and hypertrophic facet arthropathy result in severe bilateral foraminal stenosis. Findings are similar to the prior exam. C6-C7: There is a disc osteophyte complex that is eccentric to the left side which results in slightly worsening moderate to severe central canal stenosis and mass effect on the cervical cord. Uncovertebral joint hypertrophy and hypertrophic facet arthropathy result in similar severe bilateral foraminal stenosis. C7-T1: Disc contour is normal. No central canal stenosis and no significant foraminal stenosis. IMPRESSION: - At C6-C7, slightly progressive degenerative changes result in worsening moderate to severe central canal stenosis and mass effect on the cervical cord. Similar severe bilateral foraminal stenosis at this level. - At C5-C6, disc volume loss has progressed with multifactorial degenerative changes resulting in similar moderate left-sided central canal stenosis, flattening the left ventral cord, and severe bilateral foraminal stenosis. - At C4-C5 there is solid interbody fusion and osteophytic ridging results in similar severe right-sided bony foraminal stenosis. - At C3-C4, multifactorial degenerative changes result in similar severe right and moderate left foraminal stenosis. - At C2-C3 multifactorial degenerative changes including severe left-sided hypertrophic facet arthropathy result in similar severe left-sided foraminal stenosis. - Retropharyngeal course of the right cervical ICA. DICTATED BY: Romeo Hanna MD DATE/TIME DICTATED:01/05/181326 CASSANDRA DEVELOPER:GHADA DATE/TIME TRANSCRIBED:01/05/181326 (Adithya Mcdonald) Departure Departure Disposition: HOME OR SELF CARE Condition: Stable Clinical Impression Primary Impression: Neck pain Referrals: Kelli SCHMITZ,Meri Hernandez (PCP/Family) Additional Instructions: As discussed continue your previously prescribed Tylenol with Codeine or morphine for pain, begin heating the area 20 minutes every 2 hours if no better by the end of the week follow-up with your spinal surgeon, begin the prescription of Medrol Dosepak for inflammation prescription is waiting at [facility]. If symptoms worsen or if YOU develop a new concerning symptom return to emergency room Departure Forms: Customer Survey General Discharge Information Prescriptions: Current Visit Scripts Methylprednisolone. (Medrol) 1 DP PO AD #1 DP 6 on day 1 then reduce by one tablet daily until gone (Adithya Mcdonald) PA/REEFER ENGINEER Co-Sign Statement Statement: ED Attending supervision documentation- [] I saw and evaluated the patient. I have also reviewed all the pertinent lab results and diagnostic results. I agree with the findings and the plan of care as documented in the PA's/REEFER ENGINEER's documentation. [X] I have reviewed the ED Record and agree with the PA's/REEFER ENGINEER's documentation. [] Additions or exceptions (if any) to the PAs/REEFER ENGINEER's note and plan are summarized below: [] (Kane Easley DO) Critical Care Note Critical Care Note Critical Care Time: non-applicable (Adithya Mcdonald)
[2018-01-31 17:53] LABS: ABSOLUTE BASOPHIL COUNT 0 /CUMM (0.0-0.2); ABSOLUTE EOSINOPHIL COUNT 0.1 /CUMM (0.0-0.7); ABSOLUTE GRANULOCYTE CT 7.5 /CUMM (1.4-6.5); ABSOLUTE LYMPH COUNT 2.7 /CUMM (1.2-3.4); ABSOLUTE MONOCYTE COUNT 1.1 /CUMM (0.10-0.60); BASOPHIL % 0.3 % (0.0-2.0); EOSINOPHIL % 0.6 % (0-5); GRANULOCYTE % 66.3 % (42.2-75.2); HEMATOCRIT 41.8 % (37-47); MEAN CORPUSCULAR HGB 30.7 PG (27.0-31.0); MEAN CORPUSCULAR VOLUME 93.1 FL (81.0-99.0); MEAN PLATELET VOLUME 9.2 FL (7.4-10.4); PLATELET COUNT 214 /CUMM (130-400); RBC DISTRIBUTION WIDTH 13.9 % (11.5-14.5); WHITE BLOOD CELL COUNT 11.3 /CUMM (4.8-10.8)
[2018-01-31] MEDS ORDERED: MEDROL4 M2 PO (18:43)
[2018-01-31 19:01] VITALS: BP 140/77
== END 2018-01-31 19:02 ==
LOC: ERH 14:18
PROVIDERS: Physician Assistant
DX: M54.2 Cervicalgia (principal)
CPT/HCPCS: 93005; 93010